=== PATIENT | female | born 1960 | race American Indian/Alaskan Native ===

== ENCOUNTER 2017-09-20 06:29 | Inpatient (IN) | payer MEDICARE ==
[2017-09-20] MEDS ORDERED: NACL ONE (09:31)
--- NOTE | 2017-09-20 09:46 | Emergency Department Report ---
HPI - General Chief Complaint: Weakness Time Seen by Provider: 09/20/17 09:16 - HPI HPI: This is a 57-year-old female who presents to the emergency department by EMS from home with complaint of left-sided weakness since last night. She says that this started around 10 PM and then she decided to just go to sleep and hope that it went away but she woke up with the symptoms as well and this prompted the patient's daughter to call for EMS. She denies any headache, vision change, slurred speech. She is unsure whether she feels some type of sensory deficit to the left side as well. She has a past medical history of [id number] diabetes, asthma, hypertension, atrial fibrillation on warfarin, sleep apnea. She's not had a primary care doctor. She is a tobacco smoker but denies any alcohol or illicit drug use or abuse. No recent travel or sick contacts at home. She did not take anything for her symptoms prior to presentation. ED Past Medical Hx - Past Medical History Hx Hypertension: Yes Hx Asthma: Yes Additional medical history: Sleep Apnea - Surgical History Additional Surgical History: Hysterectomy, - Social History Smoking Status: Current Every Day Smoker Substance Use Type: None ED Review of Systems ROS: Stated complaint: LT SIDE WEAKNESS Other details as noted in HPI Comment: All other systems reviewed and negative Constitutional: weakness. denies: chills, fever Eyes: denies: eye pain, eye discharge, vision change ENT: denies: ear pain, throat pain Respiratory: denies: cough, shortness of breath, wheezing Endocrine: no symptoms reported Gastrointestinal: denies: abdominal pain, nausea, diarrhea Genitourinary: denies: urgency, dysuria, discharge Musculoskeletal: denies: back pain, joint swelling, arthralgia Skin: denies: rash, lesions Neurological: weakness. denies: headache Physical Exam - Physical Exam Vital Signs: Vital Signs 09/20/17 09:07 Temperature 98.0 F Pulse Rate 83 Respiratory 20 Rate Blood Pressure 142/90 O2 Sat by Pulse 97 Oximetry Physical Exam: GENERAL: The patient is well-developed well-nourished. HENT: Normocephalic. Atraumatic. Patient has moist mucous membranes. EYES: Extraocular motions are intact. Pupils equal reactive to light bilaterally. No nystagmus. NECK: Supple. Trachea is midline. CHEST/LUNGS: Clear to auscultation. There is no respiratory distress noted. HEART/CARDIOVASCULAR: Regular. There is no tachycardia. There is no murmur. ABDOMEN: Abdomen is soft, nontender. Patient has normal bowel sounds. There is no abdominal distention. Morbidly obese habitus. SKIN: Skin is warm and dry. NEURO: The patient is awake, alert, and oriented. The patient is cooperative. The patient has left-sided weakness. The left arm drifts down but she can hold it above the gurney. There appears to be almost complete paralysis of the left lower extremity. There is subjective decreased sensation to the left leg compared to the right. No facial asymmetry. The patient has normal speech. MUSCULOSKELETAL: There is no tenderness or deformity. There is no evidence of acute injury. ED Course Vital Signs 09/20/17 09:07 Temperature 98.0 F Pulse Rate 83 Respiratory 20 Rate Blood Pressure 142/90 O2 Sat by Pulse 97 Oximetry - Consultations Consultation #1: I spoke to the on-call telemedicine neurologist and she agrees that the patient is not a TPA candidate as the symptoms started about 12 hours ago. She agrees with plan for admission for MRI and further stroke workup but nothing further required emergently through the ED. 09/20/17 12:15 ED Medical Decision Making - Lab Data Result diagrams: 09/20/17 09:23 09/20/17 09:23 - EKG Data -: EKG Interpreted by Me EKG shows normal: sinus rhythm (with PACs), axis, intervals, QRS complexes, ST- T waves Rate: normal - EKG Data When compared to previous EKG there are: previous EKG unavailable Interpretation: normal EKG - Radiology Data Radiology results: report reviewed CT HEAD WITHOUT CONTRAST: HISTORY: Left sided weakness. TECHNIQUE: Sequential CT images without contrast. FINDINGS: Images obtained show bilateral prominence of the sulci and ventricles. There are no abnormal intra- or extra-axial blood or fluid collections. There are no focal masses or evidence of mass effect. The qiu white matter differentiation appears within normal limits. Regions of periventricular decreased attenuation are consistent with microangiopathic ischemic disease. Chronic 1 cm infarct in the right ortiz radiata is noted. The posterior fossa structures including the fourth ventricle, cerebellum, and brainstem appear normal. IMPRESSION: Evidence of mild atrophy and microangiopathic ischemic disease. Chronic 1 cm infarct in the right ortiz radiata. No acute intracranial process noted. Transcribed By: TTR Dictated By: CONCETTA MARTINEZ JR, MD Electronically Authenticated By: CONCETTA MARTINEZ JR, MD Signed Date/Time: 09/20/17 1006 - Medical Decision Making Patient has left sided weakness, worst in the lower extremity as well as some subjective decreased sensation. It appears consistent with a CVA but so far CT of the head did not show any bleed, ischemic changes or any acute process. Labs are mostly unremarkable and do not show any etiology of her symptoms. EKG is basically normal without any ST elevation [place] or significant dysrhythmia. She was given an aspirin. She will be admitted to the hospital for further evaluation and treatment and has been accepted for admission by the hospitalist , Dr. Dempsey. - Differential Diagnosis CVA, TIA, hypoglycemia Critical Care Time: No Critical care attestation.: If time is entered above; I have spent that time in minutes in the direct care of this critically ill patient, excluding procedure time. ED Disposition Clinical Impression: Left-sided weakness CVA (cerebral vascular accident) Qualifiers: CVA mechanism: unspecified Qualified Code(s): I63.9 - Cerebral infarction, unspecified Disposition: DC-09 OP ADMIT IP TO THIS HOSP Is pt being admited?: Yes Condition: Fair Referrals: RHIANNON STARKEY MD [Primary Care Provider] - 3-5 Days Time of Disposition: 11:34
[2017-09-20 09:52] LABS: Basophils # (Auto) 0.1 K/mm3 (0.0-0.1); Basophils % (Auto) 0.6 % (0.0-1.8); Eosinophils # (Auto) 0.3 K/mm3 (0.0-0.4); Eosinophils % (Auto) 2.8 % (0.0-4.3); Hematocrit 43.4 % (30.3-42.9); Hemoglobin 13.8 gm/dl (10.1-14.3); Lymphocytes # (Auto) 2.6 K/mm3 (1.2-5.4); Lymphocytes % (Auto) 21.9 % (13.4-35.0); Mean Corpuscular HGB Conc 32 % (30-34); Mean Corpuscular Hemoglobin 27 pg (28-32); Mean Corpuscular Volume 84 fl (79-97); Monocytes # (Auto) 0.7 K/mm3 (0.0-0.8); Monocytes % (Auto) 6.1 % (0.0-7.3); Platelet Count 261 K/mm3 (140-440); Red Blood Count 5.17 M/mm3 (3.65-5.03)
[2017-09-20 10:03] LABS: INR 2.67 (0.87-1.13)
[2017-09-20 10:04] LABS: Partial Thromboplastin Time 54.9 Sec. (24.2-36.6)
[2017-09-20 10:09] LABS: BUN/Creatinine Ratio 18; Blood Urea Nitrogen 9 mg/dL (7-17); Calcium 9.3 mg/dL (8.4-10.2); Hemolysis Index 4
--- NOTE | 2017-09-20 10:11 | Cat Scan Report ---
CT HEAD WITHOUT CONTRAST: HISTORY: Left sided weakness. TECHNIQUE: Sequential CT images without contrast. FINDINGS: Images obtained show bilateral prominence of the sulci and ventricles. There are no abnormal intra- or extra-axial blood or fluid collections. There are no focal masses or evidence of mass effect. The qiu white matter differentiation appears within normal limits. Regions of periventricular decreased attenuation are consistent with microangiopathic ischemic disease. Chronic 1 cm infarct in the right ortiz radiata is noted. The posterior fossa structures including the fourth ventricle, cerebellum, and brainstem appear normal. IMPRESSION: Evidence of mild atrophy and microangiopathic ischemic disease. Chronic 1 cm infarct in the right ortiz radiata. No acute intracranial process noted.
[2017-09-20 10:12] LABS: Alanine Aminotransferase 15 units/L (7-56); Albumin 3.6 g/dL (3.9-5)
[2017-09-20 10:14] LABS: Bilirubin,Direct < 0.2 mg/dL (0-0.2)
[2017-09-20] MEDS ORDERED: BABY ASPIRIN PO ONE (10:35)
[2017-09-20] MEDS: HEPARIN SUB-Q SCH ×2 (16:33→21:04)
--- NOTE | 2017-09-20 21:08 | History and Physical Report ---
History of Present Illness Date of examination: 09/20/17 Date of admission: 09/20/17 11:35 Chief complaint: CC Unable to use L side History of present illness: HONORIO: 57-year-old female with pmh of HTN Asthma and Sleep Apnea presents to the emergency department by EMS from home with complaint of left- sided weakness since last night. She says that this started around 10 PM and then she decided to just go to sleep and hope that it went away but she woke up with the symptoms as well and this prompted the patient's daughter to call for EMS. She denies any headache, vision change, slurred speech. She is unsure whether she feels some type of sensory deficit to the left side as well. She has a past medical history of [id number] diabetes, asthma, hypertension, atrial fibrillation on warfarin, sleep apnea. She's not had a primary care doctor. She is a tobacco smoker but denies any alcohol or illicit drug use or abuse. No recent travel or sick contacts at home. She did not take anything for her symptoms prior to presentation. Past Medical History Hx Hypertension: Yes Hx Asthma: Yes Additional medical history: Sleep Apnea Surgical History Additional Surgical History: Hysterectomy, Social History Smoking Status: Current Every Day Smoker Substance Use Type: None Fam Hx Htn Review of Systems Stated complaint: LT SIDE WEAKNESS Other details as noted in HPI Comment: All other systems reviewed and negative Constitutional: weakness. denies: chills, fever Eyes: denies: eye pain, eye discharge, vision change ENT: denies: ear pain, throat pain Respiratory: denies: cough, shortness of breath, wheezing Endocrine: no symptoms reported Gastrointestinal: denies: abdominal pain, nausea, diarrhea Genitourinary: denies: urgency, dysuria, discharge Musculoskeletal: denies: back pain, joint swelling, arthralgia Skin: denies: rash, lesions Neurological: weakness. denies: headache Medications and Allergies Allergies Allergy/AdvReac Type Severity Reaction Status Date / Time No Known Allergies Allergy Unverified 09/20/17 09:07 Active Meds: Active Medications Heparin Sodium (Porcine) (Heparin) 5,000 unit SUB-Q Q8HR [facility] Last Admin: 09/20/17 21:04 Dose: 5,000 unit Influenza Virus Vaccine Quadrival (Fluarix Quad [id number](36 Mos+) 0.5 ml IM .ONCE ONE Stop: 09/21/17 12:01 Exam - Physical Exam Narrative exam: Lying comfortably - Constitutional Vitals: Temp Pulse Resp BP Pulse Ox 98.8 F 79 20 174/98 97 09/20/17 15:48 09/20/17 15:48 09/20/17 15:48 09/20/17 15:48 09/20/17 15:48 General appearance: Present: no acute distress, well-nourished - EENT Eyes: Present: PERRL ENT: hearing intact, clear oral mucosa - Neck Neck: Present: supple, normal ROM - Respiratory Respiratory effort: normal Respiratory: bilateral: CTA - Cardiovascular Heart rate: 76 Rhythm: regular Heart Sounds: Present: S1 & S2. Absent: rub, click - Extremities Extremities: no ischemia, pulses intact, pulses symmetrical, No edema Peripheral Pulses: within normal limits - Abdominal General gastrointestinal: Present: soft, non-tender, non-distended, normal bowel sounds Female genitourinary: Present: normal - Rectal Rectal Exam: deferred - Integumentary Integumentary: Present: clear, warm, dry - Musculoskeletal Musculoskeletal: strength equal bilaterally, left sided weakness (0/5 power Flaccid paralysis) - Psychiatric Psychiatric: appropriate mood/affect, intact judgment & insight - Neurologic Neurologic: CNII-XII intact, moves all extremities Results - Labs CBC & Chem 7: 09/21/17 04:48 09/21/17 04:48 Labs: Laboratory Last Values WBC 11.7 K/mm3 (4.5-11.0) H 09/20/17 09:23 RBC 5.17 M/mm3 (3.65-5.03) H 09/20/17 09:23 Hgb 13.8 gm/dl (10.1-14.3) 09/20/17 09:23 Hct 43.4 % (30.3-42.9) H 09/20/17 09:23 MCV 84 fl (79-97) 09/20/17 09:23 MCH 27 pg (28-32) L 09/20/17 09:23 MCHC 32 % (30-34) 09/20/17 09:23 RDW 15.0 % (13.2-15.2) 09/20/17 09:23 Plt Count 261 K/mm3 (140-440) 09/20/17 09:23 Lymph % (Auto) 21.9 % (13.4-35.0) 09/20/17 09:23 [place] % (Auto) 6.1 % (0.0-7.3) 09/20/17 09:23 Eos % (Auto) 2.8 % (0.0-4.3) 09/20/17 09:23 Baso % (Auto) 0.6 % (0.0-1.8) 09/20/17 09:23 Lymph # 2.6 K/mm3 (1.2-5.4) 09/20/17 09:23 [place] # 0.7 K/mm3 (0.0-0.8) 09/20/17 09:23 Eos # 0.3 K/mm3 (0.0-0.4) 09/20/17 09:23 Baso # 0.1 K/mm3 (0.0-0.1) 09/20/17 09:23 Seg Neutrophils % 68.6 % (40.0-70.0) 09/20/17 09:23 Seg Neutrophils # 8.0 K/mm3 (1.8-7.7) H 09/20/17 09:23 PT 30.1 Sec. (12.2-14.9) H 09/20/17 09:23 INR 2.67 (0.87-1.13) H 09/20/17 09:23 APTT 54.9 Sec. (24.2-36.6) H 09/20/17 09:23 Sodium 149 mmol/L (137-145) H 09/20/17 09:23 Potassium 4.0 mmol/L (3.6-5.0) 09/20/17 09:23 Chloride 103.5 mmol/L (98-107) 09/20/17 09:23 Carbon Dioxide 32 mmol/L (22-30) H 09/20/17 09:23 Anion Gap 18 mmol/L 09/20/17 09:23 BUN 9 mg/dL (7-17) 09/20/17 09:23 Creatinine 0.5 mg/dL (0.7-1.2) L 09/20/17 09:23 Estimated GFR > 60 ml/min 09/20/17 09:23 BUN/Creatinine Ratio 18 % 09/20/17 09:23 Glucose 110 mg/dL (65-100) H 09/20/17 09:23 POC Glucose 84 (70-105) 09/20/17 15:57 Calcium 9.3 mg/dL (8.4-10.2) 09/20/17 09:23 Total Bilirubin 0.60 mg/dL (0.1-1.2) 09/20/17 09:23 Direct Bilirubin < 0.2 mg/dL (0-0.2) 09/20/17 09:23 Indirect Bilirubin 0.4 mg/dL 09/20/17 09:23 AST 13 units/L (5-40) 09/20/17 09:23 ALT 15 units/L (7-56) 09/20/17 09:23 Alkaline Phosphatase 78 units/L (35-129) 09/20/17 09:23 Troponin T < 0.010 ng/mL (0.00-0.029) 09/20/17 09:23 Total Protein 6.7 g/dL (6.3-8.2) 09/20/17 09:23 Albumin 3.6 g/dL (3.9-5) L 09/20/17 09:23 Albumin/Globulin Ratio 1.2 % 09/20/17 09:23 TSH 0.479 mlU/mL (0.270-4.200) 09/20/17 09:23 - Imaging and Cardiology EKG: report reviewed CT Scan - head: report reviewed (NAF Chronic 1 cm infarct Rt Gal[place] radiata) Assessment and Plan Advance Directives: Yes (Full code) VTE prophylaxis?: Chemical Plan of care discussed with patient/family: Yes - Patient Problems (1) CVA (cerebral vascular accident) Current Visit: Yes Status: Acute Qualifiers: CVA mechanism: thrombosis Precerebral and cerebral artery: middle cerebral artery Laterality of affected vessel: right Qualified Code(s): I63.311 - Cerebral infarction due to thrombosis of right middle cerebral artery Plan to address problem: Rt Cva with l sided weakness. CVA w/u MRI/MRA/Echo/Carotid duplex scan ordered. Neuro consult requested PT/OT /speech eval ordered (2) HTN (hypertension) Current Visit: Yes Status: Chronic Qualifiers: Hypertension type: essential hypertension Qualified Code(s): I10 - Essential (primary) hypertension Plan to address problem: Cont antihypertensives (3) Sleep apnea Current Visit: Yes Status: Chronic Qualifiers: Sleep apnea type: unspecified type Qualified Code(s): G47.30 - Sleep apnea , unspecified Plan to address problem: CPAP prn (4) Asthma Current Visit: Yes Status: Inactive Qualifiers: Asthma complication type: unspecified Plan to address problem: Albuterol neb tx Prn (5) DVT prophylaxis Current Visit: Yes Status: Acute Plan to address problem: on Lovenox
[2017-09-20] MEDS ORDERED: DULCOLAX PR PRN (21:10)
[2017-09-20] MEDS ORDERED: MORPHINE IV PRN (21:11)
[2017-09-20] MEDS ORDERED: SODIUM CHLORIDE FLUSH SYRINGE 10 ML IV PRN (21:14)
[2017-09-20] MEDS ORDERED: NACL 0.45% 1000 ML 1,000 ML IV SCH (22:00)
[2017-09-20] MEDS: PEPCID PO SCH (23:49)
[2017-09-21 05:27] LABS: Basophils # (Auto) 0.1 K/mm3 (0.0-0.1); Basophils % (Auto) 0.7 % (0.0-1.8); Eosinophils # (Auto) 0.3 K/mm3 (0.0-0.4); Eosinophils % (Auto) 2.9 % (0.0-4.3); Hematocrit 42.7 % (30.3-42.9); Hemoglobin 14.1 gm/dl (10.1-14.3); Lymphocytes # (Auto) 2.5 K/mm3 (1.2-5.4); Lymphocytes % (Auto) 24.6 % (13.4-35.0); Mean Corpuscular HGB Conc 33 % (30-34); Mean Corpuscular Hemoglobin 28 pg (28-32); Mean Corpuscular Volume 84 fl (79-97); Monocytes # (Auto) 0.6 K/mm3 (0.0-0.8); Monocytes % (Auto) 5.7 % (0.0-7.3); Platelet Count 242 K/mm3 (140-440); Red Blood Count 5.06 M/mm3 (3.65-5.03); Red Cell Distribution Width 14.7 % (13.2-15.2)
[2017-09-21 06:11] LABS: Alanine Aminotransferase 14 units/L (7-56); Albumin 3.5 g/dL (3.9-5); BUN/Creatinine Ratio 16; Blood Urea Nitrogen 8 mg/dL (7-17); Calcium 9.3 mg/dL (8.4-10.2); Chol/HDL Ratio 4.45 %; HDL Cholesterol 46 mg/dL (40-59); Hemolysis Index 8; LDL Cholesterol,Direct 99 mg/dL (50-130)
[2017-09-21] MEDS: HEPARIN SUB-Q SCH ×3 (06:13→21:51)
[2017-09-21 06:55] LABS: Amorphous Crystals,Urine 1+; Bacteria,Urine 1+ /HPF (Negative); Bilirubin,Urine NEG (Negative); Blood,Urine NEG (Negative); Color,Urine Yellow (Yellow); Mucus,Urine FEW /HPF; Nitrite,Urine NEG (Negative); Urobilinogen,Urine < 2.0 mg/dL (<2.0); WBC,Urine < 1.0 /HPF (0.0-6.0)
[2017-09-21] MEDS: PEPCID PO SCH ×2 (09:48→21:52)
--- NOTE | 2017-09-21 10:46 | Magnetic Resonance Report ---
MRI OF THE BRAIN WITHOUT CONTRAST: HISTORY: Stroke PROCEDURE: Multiplanar, multisequence MR imaging of the brain without IV contrast was performed. FINDINGS: Compared to the CT head dated 09/20/17. A 5 mm focus of diffusion restriction is identified in the right lateral thalamus/posterior limb of the right internal capsule consistent with subacute ischemia. This is best demonstrated on the diffusion image 20. No additional area of diffusion restriction is identified. No evidence for hemorrhage, mass or extra-axial fluid collection. A chronic 1 cm focal infarct is identified in the posterior right ortiz radiata on flair image 17. No large chronic infarct. There are mild nonspecific chronic white matter changes. The qiu-white interface is well defined. The midline structures are central. The basal cisterns are patent. Normal ventricular size. The orbital cavities and sella turcica demonstrate no abnormality. The visualized paranasal sinuses and mastoid air cells are well aerated. IMPRESSION: 5 mm focus of subacute ischemia in the right lateral thalamus/posterior limb of the right internal capsule. Chronic focal infarct in the right ortiz radiata. Nonspecific chronic white matter changes.
--- NOTE | 2017-09-21 10:47 | Magnetic Resonance Report ---
MRA HEAD WITHOUT CONTRAST HISTORY: Stroke. [id number] imaging with MIP reformations of the lime of [place] is submitted. The arteries appear widely patent and free of hemodynamically significant stenosis, aneurysm or dissection. Moderate bilateral posterior communicating arteries are identified. IMPRESSION: Unremarkable MRA head.
[2017-09-21] MEDS ORDERED: Fluarix Quad 2017-2018(36 MOS+ IM ONE (12:00)
[2017-09-21] MEDS: TYLENOL PO PRN (12:03)
--- NOTE | 2017-09-21 15:30 | Consultation ---
History of Present Illness Consult date: 09/21/17 History of present illness: went over the MRI with family clear cut HTN related infarct deep white matter right hemisphere... BP control is not good explained that drug therapy is not effective.... conservative therapy for stroke is recommended [facility] similar stroke while at [facility] last February Medications and Allergies Allergies Allergy/AdvReac Type Severity Reaction Status Date / Time No Known Allergies Allergy Unverified 09/21/17 12:41 Home Medications Medication Instructions Recorded Confirmed Last Taken Type Amlodipine Besylate [Norvasc] 10 mg PO BID 09/21/17 09/21/17 09/19/17 History Carvedilol [Coreg] 25 mg PO BID 09/21/17 09/21/17 09/19/17 History Lisinopril [Zestril] 40 mg PO DAILY 09/21/17 09/21/17 09/19/17 History metFORMIN [Glucophage] 750 mg PO BID 09/21/17 09/21/17 09/19/17 History Active Meds: Active Medications Acetaminophen (Tylenol) 650 mg PO Q4H PRN PRN Reason: Pain MILD(1-3)/Fever >100.5/RIVERA Last Admin: 09/21/17 12:03 Dose: 650 mg Atorvastatin Calcium (Lipitor) 20 mg PO QHS [facility] Bisacodyl (Dulcolax) 10 mg OR QDAY PRN PRN Reason: Constipation unrelieved by MOM Clopidogrel Bisulfate (Plavix) 75 mg PO QDAY [facility] Famotidine (Pepcid) 20 mg PO BID [facility] Last Admin: 09/21/17 09:48 Dose: 20 mg Heparin Sodium (Porcine) (Heparin) 5,000 unit SUB-Q Q8HR [facility] Last Admin: 09/21/17 06:13 Dose: 5,000 unit Hydralazine HCl (Apresoline) 10 mg IV Q6H PRN PRN Reason: Keep SBP between 160-185 mm Hg Magnesium Hydroxide (Milk Of Magnesia) 30 ml PO Q4H PRN PRN Reason: Constipation Morphine Sulfate (Morphine) 2 mg IV Q4H PRN PRN Reason: Pain, Moderate (4-6) Morphine Sulfate (Morphine) 4 mg IV Q4H PRN PRN Reason: Pain , Severe (7-10) Ondansetron HCl (Zofran) 4 mg IV Q8H PRN PRN Reason: N/V unrelieved by Reglan Oxycodone/Acetaminophen (Percocet 5/325) 1 tab PO Q6H PRN PRN Reason: Pain, Moderate (4-6) Sodium Chloride (Sodium Chloride Flush Syringe 10 Ml) 10 ml IV PRN PRN PRN Reason: LINE FLUSH Physical Examination - Vital Signs Vital Signs: Vital Signs Resp 20 09/20/17 09:00 Results - Laboratory Findings CBC and BMP: 09/21/17 04:48 09/21/17 04:48 Abnormal Lab Findings: Abnormal Labs 09/20/17 09/20/17 09/20/17 06:15 09:23 09:23 WBC 11.7 H RBC 5.17 H Hct 43.4 H MCH 27 L Seg Neutrophils # 8.0 H PT INR APTT Sodium 149 H Carbon Dioxide 32 H Creatinine 0.5 L Glucose 110 H Hemoglobin A1c Albumin Triglycerides Cholesterol Urine pH 8.0 H 09/20/17 09/20/17 09/20/17 09:23 09:23 09:23 WBC RBC Hct MCH Seg Neutrophils # PT 30.1 H INR 2.67 H APTT 54.9 H Sodium Carbon Dioxide Creatinine Glucose Hemoglobin A1c 6.4 H Albumin 3.6 L Triglycerides Cholesterol Urine pH 09/21/17 09/21/17 04:48 04:48 WBC RBC 5.06 H Hct MCH Seg Neutrophils # PT INR APTT Sodium Carbon Dioxide Creatinine 0.5 L Glucose 109 H Hemoglobin A1c Albumin 3.5 L Triglycerides 301 H Cholesterol 205 H Urine pH
[2017-09-21] MEDS: APRESOLINE IV PRN (17:27)
[2017-09-21] MEDS: PLAVIX PO SCH (17:27)
[2017-09-21] MEDS: PERCOCET 5/325 PO PRN (18:34)
[2017-09-21] MEDS: ZOFRAN IV PRN (21:51)
[2017-09-22] MEDS: MILK OF MAGNESIA PO PRN ×2 (05:57→22:07)
[2017-09-22] MEDS: HEPARIN SUB-Q SCH ×3 (05:58→22:07)
[2017-09-22] MEDS: PLAVIX PO SCH (10:24)
[2017-09-22] MEDS: PEPCID PO SCH ×2 (10:24→22:07)
--- NOTE | 2017-09-22 12:23 | Progress Note ---
Assessment and Plan Assessment and plan: Patient is a 57-year-old right-handed woman woman with history of CVA with left sided weakness, hypertension, type 2 diabetes mellitus, asthma, atrial fib on Warfarin, tobacco dependency and obstructive sleep apnea who presents with worsening left sided weakness MRI brain without contrast reported as 5 mm focus of subacute ischemia in the right lateral thalamus/posterior limb of the right internal capsule, chronic focal area for the right coronal radiata, nonspecific chronic white matter changes -Acute ischemic infarct, patient admits to not being completely compliant with aspirin: mri, change asa to plavix, consult neurology -Accelerated Hypertension: prn iv hydralazine -Dyslipidemia: start statin -Uncontrolled dm: add ssi -GI/DVT prophylaxis reviewed History Interval history: Patient was seen and examined. Follow-up on current diagnosis. Overnight uneventful. Patient denies any chest pain, shortness breath, nausea/vomiting or severe headaches. Imaging, nursing note, chart, labs and old chart reviewed. Discussed with patient. Hospitalist Physical - Physical exam Narrative exam: GEN: WDWN, NAD, AWAKE, ALERT, ORIENTATED 3 HEENT: NCAT, EOMI, PERRL, OP Clear NECK: supple, no adenopathy, no thyromegaly, no JVD CVS/HEART: RRR, NORMAL S1S2, NO JVD, pulses present bilaterally CHEST/LUNGS: CTA B, Symmetrical chest expansion, good air entry bilaterally GI/Abdomen: soft, NTND, good bowel sounds, no guarding or rebound /Bladder: no suprapubic tenderness, no CVA or paraspinal tenderness EXT/Skin: no c/c/e, no obvious rash MSK: Left hemiparesis Neuro: CN 2-12 grossly intact, left pronator drift, left sided sensory deficits and expressive aphasia Psych: calm - Constitutional Vitals: Temp Pulse Resp BP Pulse Ox 98.5 F 77 20 172/92 95 09/22/17 08:50 09/22/17 08:50 09/22/17 08:50 09/22/17 08:50 09/22/17 08:50 General appearance: Present: no acute distress, well-nourished Results - Labs CBC & Chem 7: 09/21/17 04:48 09/21/17 04:48 Labs: Laboratory Last Values WBC 10.2 K/mm3 (4.5-11.0) 09/21/17 04:48 RBC 5.06 M/mm3 (3.65-5.03) H 09/21/17 04:48 Hgb 14.1 gm/dl (10.1-14.3) 09/21/17 04:48 Hct 42.7 % (30.3-42.9) 09/21/17 04:48 MCV 84 fl (79-97) 09/21/17 04:48 MCH 28 pg (28-32) 09/21/17 04:48 MCHC 33 % (30-34) 09/21/17 04:48 RDW 14.7 % (13.2-15.2) 09/21/17 04:48 Plt Count 242 K/mm3 (140-440) 09/21/17 04:48 Lymph % (Auto) 24.6 % (13.4-35.0) 09/21/17 04:48 [place] % (Auto) 5.7 % (0.0-7.3) 09/21/17 04:48 Eos % (Auto) 2.9 % (0.0-4.3) 09/21/17 04:48 Baso % (Auto) 0.7 % (0.0-1.8) 09/21/17 04:48 Lymph # 2.5 K/mm3 (1.2-5.4) 09/21/17 04:48 [place] # 0.6 K/mm3 (0.0-0.8) 09/21/17 04:48 Eos # 0.3 K/mm3 (0.0-0.4) 09/21/17 04:48 Baso # 0.1 K/mm3 (0.0-0.1) 09/21/17 04:48 Seg Neutrophils % 66.1 % (40.0-70.0) 09/21/17 04:48 Seg Neutrophils # 6.7 K/mm3 (1.8-7.7) 09/21/17 04:48 PT 30.1 Sec. (12.2-14.9) H 09/20/17 09:23 INR 2.67 (0.87-1.13) H 09/20/17 09:23 APTT 54.9 Sec. (24.2-36.6) H 09/20/17 09:23 Sodium 144 mmol/L (137-145) 09/21/17 04:48 Potassium 3.7 mmol/L (3.6-5.0) 09/21/17 04:48 Chloride 101.3 mmol/L (98-107) 09/21/17 04:48 Carbon Dioxide 30 mmol/L (22-30) 09/21/17 04:48 Anion Gap 16 mmol/L 09/21/17 04:48 BUN 8 mg/dL (7-17) 09/21/17 04:48 Creatinine 0.5 mg/dL (0.7-1.2) L 09/21/17 04:48 Estimated GFR > 60 ml/min 09/21/17 04:48 BUN/Creatinine Ratio 16 % 09/21/17 04:48 Glucose 109 mg/dL (65-100) H 09/21/17 04:48 POC Glucose 84 (70-105) 09/20/17 15:57 Hemoglobin A1c 6.4 % (4-6) H 09/20/17 09:23 Calcium 9.3 mg/dL (8.4-10.2) 09/21/17 04:48 Total Bilirubin 1.10 mg/dL (0.1-1.2) 09/21/17 04:48 Direct Bilirubin < 0.2 mg/dL (0-0.2) 09/20/17 09:23 Indirect Bilirubin 0.4 mg/dL 09/20/17 09:23 AST 14 units/L (5-40) 09/21/17 04:48 ALT 14 units/L (7-56) 09/21/17 04:48 Alkaline Phosphatase 77 units/L (35-129) 09/21/17 04:48 Troponin T < 0.010 ng/mL (0.00-0.029) 09/20/17 09:23 Total Protein 6.5 g/dL (6.3-8.2) 09/21/17 04:48 Albumin 3.5 g/dL (3.9-5) L 09/21/17 04:48 Albumin/Globulin Ratio 1.2 % 09/21/17 04:48 Triglycerides 301 mg/dL (2-149) H 09/21/17 04:48 Cholesterol 205 mg/dL (50-199) H 09/21/17 04:48 LDL Cholesterol Direct 99 mg/dL (50-130) 09/21/17 04:48 HDL Cholesterol 46 mg/dL (40-59) 09/21/17 04:48 Cholesterol/HDL Ratio 4.45 % 09/21/17 04:48 TSH 0.479 mlU/mL (0.270-4.200) 09/20/17 09:23 Urine Color Yellow (Yellow) 09/20/17 06:15 Urine Turbidity Cloudy (Clear) 09/20/17 06:15 Urine pH 8.0 (5.0-7.0) H 09/20/17 06:15 Ur Specific [place] 1.013 (1.003-1.030) 09/20/17 06:15 Urine Protein 100 mg/dl mg/dL (Negative) 09/20/17 06:15 Urine Glucose (UA) 50 mg/dL (Negative) 09/20/17 06:15 Urine Ketones Neg mg/dL (Negative) 09/20/17 06:15 Urine Blood Neg (Negative) 09/20/17 06:15 Urine Nitrite Neg (Negative) 09/20/17 06:15 Urine Bilirubin Neg (Negative) 09/20/17 06:15 Urine Urobilinogen < 2.0 mg/dL (<2.0) 09/20/17 06:15 Ur Leukocyte Esterase Neg (Negative) 09/20/17 06:15 Urine WBC (Auto) < 1.0 /HPF (0.0-6.0) 09/20/17 06:15 Urine RBC (Auto) 2.0 /HPF (0.0-6.0) 09/20/17 06:15 U Epithel Cells (Auto) 6.0 /HPF (0-13.0) 09/20/17 06:15 Urine Bacteria (Auto) 1+ /HPF (Negative) 09/20/17 06:15 Amorphous Crystals 1+ 09/20/17 06:15 Urine Mucus Few /HPF 09/20/17 06:15
--- NOTE | 2017-09-22 15:02 | Vascular Lab Report ---
CAROTID DUPLEX STUDY: RIGHT PSVEDV CCA PROX:6320 CCA DIST:5621 ICA PROX:7324 ICA MID:6629 ICA DIST:98082 ECA: 62 VERT: 41 17 LEFT PSVEDV CCA PROX:5415 CCA DIST:5317 ICA PROX:4816 ICA MID:6427 ICA DIST:6726 ECA: 58 VERT: 29 4 REASON FOR EXAM: Stroke. COMMENTS ON THE RIGHT: Doppler frequency analysis is consistent with 16 to 49 percent diameter reduction of the internal carotid artery. Minimal amount of plaque is seen. The common carotid artery is patent. The external carotid artery is patent. The vertebral artery has antegrade flow. COMMENTS ON THE LEFT: Doppler frequency analysis is consistent with 16 to 49 percent diameter reduction of the internal carotid artery. Minimal amount of plaque is seen. The common carotid artery is patent. The external carotid artery is patent. The vertebral artery has antegrade flow. IMPRESSION: Less than 50% diameter reduction in the internal carotid arteries bilaterally.
[2017-09-22] MEDS: PERCOCET 5/325 PO PRN (15:43)
[2017-09-22] MEDS: ZOFRAN IV PRN (16:59)
[2017-09-23] MEDS: HEPARIN SUB-Q SCH ×3 (06:05→22:55)
[2017-09-23] MEDS: TYLENOL PO PRN (07:30)
[2017-09-23] MEDS: PLAVIX PO SCH (11:17)
[2017-09-23] MEDS: PEPCID PO SCH ×2 (11:17→22:55)
[2017-09-23] MEDS: PERCOCET 5/325 PO PRN (16:10)
--- NOTE | 2017-09-23 17:34 | Progress Note ---
Assessment and Plan Assessment and plan: Patient is a 57-year-old right-handed woman woman with history of CVA with left sided weakness, hypertension, type 2 diabetes mellitus, asthma, atrial fib on Warfarin, tobacco dependency and obstructive sleep apnea who presents with worsening left sided weakness MRI brain without contrast reported as 5 mm focus of subacute ischemia in the right lateral thalamus/posterior limb of the right internal capsule, chronic focal area for the right coronal radiata, nonspecific chronic white matter changes -Acute ischemic infarct, patient admits to not being completely compliant with aspirin: mri, change asa to plavix, consult neurology -Accelerated Hypertension: prn iv hydralazine -Dyslipidemia: start statin -Uncontrolled dm: add ssi -GI/DVT prophylaxis reviewed awaiting on placement History Interval history: Patient was seen and examined. Follow-up on current diagnosis. Overnight uneventful. Patient denies any chest pain, shortness breath, nausea/vomiting or severe headaches. Imaging, nursing note, chart, labs and old chart reviewed. Discussed with patient. Hospitalist Physical - Physical exam Narrative exam: GEN: WDWN, NAD, AWAKE, ALERT, ORIENTATED 3 HEENT: NCAT, EOMI, PERRL, OP Clear NECK: supple, no adenopathy, no thyromegaly, no JVD CVS/HEART: RRR, NORMAL S1S2, NO JVD, pulses present bilaterally CHEST/LUNGS: CTA B, Symmetrical chest expansion, good air entry bilaterally GI/Abdomen: soft, NTND, good bowel sounds, no guarding or rebound /Bladder: no suprapubic tenderness, no CVA or paraspinal tenderness EXT/Skin: no c/c/e, no obvious rash MSK: Left hemiparesis Neuro: CN 2-12 grossly intact, left pronator drift, left sided sensory deficits and expressive aphasia Psych: calm - Constitutional Vitals: Temp Pulse Resp BP Pulse Ox 98.7 F 73 20 170/91 99 09/23/17 11:54 09/23/17 11:54 09/23/17 11:54 09/23/17 11:54 09/23/17 11:54 General appearance: Present: no acute distress, well-nourished Results - Labs CBC & Chem 7: 09/21/17 04:48 09/21/17 04:48 Labs: Laboratory Last Values WBC 10.2 K/mm3 (4.5-11.0) 09/21/17 04:48 RBC 5.06 M/mm3 (3.65-5.03) H 09/21/17 04:48 Hgb 14.1 gm/dl (10.1-14.3) 09/21/17 04:48 Hct 42.7 % (30.3-42.9) 09/21/17 04:48 MCV 84 fl (79-97) 09/21/17 04:48 MCH 28 pg (28-32) 09/21/17 04:48 MCHC 33 % (30-34) 09/21/17 04:48 RDW 14.7 % (13.2-15.2) 09/21/17 04:48 Plt Count 242 K/mm3 (140-440) 09/21/17 04:48 Lymph % (Auto) 24.6 % (13.4-35.0) 09/21/17 04:48 [place] % (Auto) 5.7 % (0.0-7.3) 09/21/17 04:48 Eos % (Auto) 2.9 % (0.0-4.3) 09/21/17 04:48 Baso % (Auto) 0.7 % (0.0-1.8) 09/21/17 04:48 Lymph # 2.5 K/mm3 (1.2-5.4) 09/21/17 04:48 [place] # 0.6 K/mm3 (0.0-0.8) 09/21/17 04:48 Eos # 0.3 K/mm3 (0.0-0.4) 09/21/17 04:48 Baso # 0.1 K/mm3 (0.0-0.1) 09/21/17 04:48 Seg Neutrophils % 66.1 % (40.0-70.0) 09/21/17 04:48 Seg Neutrophils # 6.7 K/mm3 (1.8-7.7) 09/21/17 04:48 PT 30.1 Sec. (12.2-14.9) H 09/20/17 09:23 INR 2.67 (0.87-1.13) H 09/20/17 09:23 APTT 54.9 Sec. (24.2-36.6) H 09/20/17 09:23 Sodium 144 mmol/L (137-145) 09/21/17 04:48 Potassium 3.7 mmol/L (3.6-5.0) 09/21/17 04:48 Chloride 101.3 mmol/L (98-107) 09/21/17 04:48 Carbon Dioxide 30 mmol/L (22-30) 09/21/17 04:48 Anion Gap 16 mmol/L 09/21/17 04:48 BUN 8 mg/dL (7-17) 09/21/17 04:48 Creatinine 0.5 mg/dL (0.7-1.2) L 09/21/17 04:48 Estimated GFR > 60 ml/min 09/21/17 04:48 BUN/Creatinine Ratio 16 % 09/21/17 04:48 Glucose 109 mg/dL (65-100) H 09/21/17 04:48 POC Glucose 84 (70-105) 09/20/17 15:57 Hemoglobin A1c 6.4 % (4-6) H 09/20/17 09:23 Calcium 9.3 mg/dL (8.4-10.2) 09/21/17 04:48 Total Bilirubin 1.10 mg/dL (0.1-1.2) 09/21/17 04:48 Direct Bilirubin < 0.2 mg/dL (0-0.2) 09/20/17 09:23 Indirect Bilirubin 0.4 mg/dL 09/20/17 09:23 AST 14 units/L (5-40) 09/21/17 04:48 ALT 14 units/L (7-56) 09/21/17 04:48 Alkaline Phosphatase 77 units/L (35-129) 09/21/17 04:48 Troponin T < 0.010 ng/mL (0.00-0.029) 09/20/17 09:23 Total Protein 6.5 g/dL (6.3-8.2) 09/21/17 04:48 Albumin 3.5 g/dL (3.9-5) L 09/21/17 04:48 Albumin/Globulin Ratio 1.2 % 09/21/17 04:48 Triglycerides 301 mg/dL (2-149) H 09/21/17 04:48 Cholesterol 205 mg/dL (50-199) H 09/21/17 04:48 LDL Cholesterol Direct 99 mg/dL (50-130) 09/21/17 04:48 HDL Cholesterol 46 mg/dL (40-59) 09/21/17 04:48 Cholesterol/HDL Ratio 4.45 % 09/21/17 04:48 TSH 0.479 mlU/mL (0.270-4.200) 09/20/17 09:23 Urine Color Yellow (Yellow) 09/20/17 06:15 Urine Turbidity Cloudy (Clear) 09/20/17 06:15 Urine pH 8.0 (5.0-7.0) H 09/20/17 06:15 Ur Specific [place] 1.013 (1.003-1.030) 09/20/17 06:15 Urine Protein 100 mg/dl mg/dL (Negative) 09/20/17 06:15 Urine Glucose (UA) 50 mg/dL (Negative) 09/20/17 06:15 Urine Ketones Neg mg/dL (Negative) 09/20/17 06:15 Urine Blood Neg (Negative) 09/20/17 06:15 Urine Nitrite Neg (Negative) 09/20/17 06:15 Urine Bilirubin Neg (Negative) 09/20/17 06:15 Urine Urobilinogen < 2.0 mg/dL (<2.0) 09/20/17 06:15 Ur Leukocyte Esterase Neg (Negative) 09/20/17 06:15 Urine WBC (Auto) < 1.0 /HPF (0.0-6.0) 09/20/17 06:15 Urine RBC (Auto) 2.0 /HPF (0.0-6.0) 09/20/17 06:15 U Epithel Cells (Auto) 6.0 /HPF (0-13.0) 09/20/17 06:15 Urine Bacteria (Auto) 1+ /HPF (Negative) 09/20/17 06:15 Amorphous Crystals 1+ 09/20/17 06:15 Urine Mucus Few /HPF 09/20/17 06:15
[2017-09-24] MEDS: HEPARIN SUB-Q SCH ×3 (06:30→22:37)
[2017-09-24] MEDS: PERCOCET 5/325 PO PRN ×2 (06:45→21:02)
[2017-09-24] MEDS: PLAVIX PO SCH (09:03)
[2017-09-24] MEDS: PEPCID PO SCH ×2 (09:03→22:36)
--- NOTE | 2017-09-24 14:22 | Progress Note ---
Assessment and Plan Assessment and plan: Patient is a 57-year-old right-handed woman woman with history of CVA with left sided weakness, hypertension, type 2 diabetes mellitus, asthma, atrial fib on Warfarin, tobacco dependency and obstructive sleep apnea who presents with worsening left sided weakness MRI brain without contrast reported as 5 mm focus of subacute ischemia in the right lateral thalamus/posterior limb of the right internal capsule, chronic focal area for the right coronal radiata, nonspecific chronic white matter changes -Acute ischemic infarct, patient admits to not being completely compliant with aspirin (she takes every other day): mri, change asa to plavix, consult neurology -Accelerated Hypertension: prn iv hydralazine -Dyslipidemia: start statin -Uncontrolled dm: add ssi -GI/DVT prophylaxis reviewed: Subcutaneous heparin -Chronic atrial fibrillation: will restart warfarin awaiting on placement History Interval history: Patient was seen and examined. Follow-up on current diagnosis. Overnight uneventful. Patient denies any chest pain, shortness breath, or severe headaches. Imaging, nursing note, chart, labs and old chart reviewed. Discussed with patient. She complains of nausea but no vomiting or abdominal pain. Hospitalist Physical - Physical exam Narrative exam: GEN: WDWN, NAD, AWAKE, ALERT, ORIENTATED 3 HEENT: NCAT, EOMI, PERRL, OP Clear NECK: supple, no adenopathy, no thyromegaly, no JVD CVS/HEART: Irregular irregular NORMAL S1S2, NO JVD, pulses present bilaterally CHEST/LUNGS: CTA B, Symmetrical chest expansion, good air entry bilaterally GI/Abdomen: soft, NTND, good bowel sounds, no guarding or rebound /Bladder: no suprapubic tenderness, no CVA or paraspinal tenderness EXT/Skin: no c/c/e, no obvious rash MSK: Left hemiparesis Neuro: CN 2-12 grossly intact, left pronator drift, left sided sensory deficits and expressive aphasia Psych: calm - Constitutional Vitals: Temp Pulse Resp BP Pulse Ox 99.0 F 73 20 157/77 97 09/24/17 09:53 09/24/17 09:53 09/24/17 09:53 09/24/17 09:53 09/24/17 09:53 General appearance: Present: no acute distress, well-nourished Results - Labs CBC & Chem 7: 09/21/17 04:48 09/21/17 04:48 Labs: Laboratory Last Values WBC 10.2 K/mm3 (4.5-11.0) 09/21/17 04:48 RBC 5.06 M/mm3 (3.65-5.03) H 09/21/17 04:48 Hgb 14.1 gm/dl (10.1-14.3) 09/21/17 04:48 Hct 42.7 % (30.3-42.9) 09/21/17 04:48 MCV 84 fl (79-97) 09/21/17 04:48 MCH 28 pg (28-32) 09/21/17 04:48 MCHC 33 % (30-34) 09/21/17 04:48 RDW 14.7 % (13.2-15.2) 09/21/17 04:48 Plt Count 242 K/mm3 (140-440) 09/21/17 04:48 Lymph % (Auto) 24.6 % (13.4-35.0) 09/21/17 04:48 [place] % (Auto) 5.7 % (0.0-7.3) 09/21/17 04:48 Eos % (Auto) 2.9 % (0.0-4.3) 09/21/17 04:48 Baso % (Auto) 0.7 % (0.0-1.8) 09/21/17 04:48 Lymph # 2.5 K/mm3 (1.2-5.4) 09/21/17 04:48 [place] # 0.6 K/mm3 (0.0-0.8) 09/21/17 04:48 Eos # 0.3 K/mm3 (0.0-0.4) 09/21/17 04:48 Baso # 0.1 K/mm3 (0.0-0.1) 09/21/17 04:48 Seg Neutrophils % 66.1 % (40.0-70.0) 09/21/17 04:48 Seg Neutrophils # 6.7 K/mm3 (1.8-7.7) 09/21/17 04:48 PT 30.1 Sec. (12.2-14.9) H 09/20/17 09:23 INR 2.67 (0.87-1.13) H 09/20/17 09:23 APTT 54.9 Sec. (24.2-36.6) H 09/20/17 09:23 Sodium 144 mmol/L (137-145) 09/21/17 04:48 Potassium 3.7 mmol/L (3.6-5.0) 09/21/17 04:48 Chloride 101.3 mmol/L (98-107) 09/21/17 04:48 Carbon Dioxide 30 mmol/L (22-30) 09/21/17 04:48 Anion Gap 16 mmol/L 09/21/17 04:48 BUN 8 mg/dL (7-17) 09/21/17 04:48 Creatinine 0.5 mg/dL (0.7-1.2) L 09/21/17 04:48 Estimated GFR > 60 ml/min 09/21/17 04:48 BUN/Creatinine Ratio 16 % 09/21/17 04:48 Glucose 109 mg/dL (65-100) H 09/21/17 04:48 POC Glucose 113 (70-105) H 09/23/17 21:26 Hemoglobin A1c 6.4 % (4-6) H 09/20/17 09:23 Calcium 9.3 mg/dL (8.4-10.2) 09/21/17 04:48 Total Bilirubin 1.10 mg/dL (0.1-1.2) 09/21/17 04:48 Direct Bilirubin < 0.2 mg/dL (0-0.2) 09/20/17 09:23 Indirect Bilirubin 0.4 mg/dL 09/20/17 09:23 AST 14 units/L (5-40) 09/21/17 04:48 ALT 14 units/L (7-56) 09/21/17 04:48 Alkaline Phosphatase 77 units/L (35-129) 09/21/17 04:48 Troponin T < 0.010 ng/mL (0.00-0.029) 09/20/17 09:23 Total Protein 6.5 g/dL (6.3-8.2) 09/21/17 04:48 Albumin 3.5 g/dL (3.9-5) L 09/21/17 04:48 Albumin/Globulin Ratio 1.2 % 09/21/17 04:48 Triglycerides 301 mg/dL (2-149) H 09/21/17 04:48 Cholesterol 205 mg/dL (50-199) H 09/21/17 04:48 LDL Cholesterol Direct 99 mg/dL (50-130) 09/21/17 04:48 HDL Cholesterol 46 mg/dL (40-59) 09/21/17 04:48 Cholesterol/HDL Ratio 4.45 % 09/21/17 04:48 TSH 0.479 mlU/mL (0.270-4.200) 09/20/17 09:23 Urine Color Yellow (Yellow) 09/20/17 06:15 Urine Turbidity Cloudy (Clear) 09/20/17 06:15 Urine pH 8.0 (5.0-7.0) H 09/20/17 06:15 Ur Specific [place] 1.013 (1.003-1.030) 09/20/17 06:15 Urine Protein 100 mg/dl mg/dL (Negative) 09/20/17 06:15 Urine Glucose (UA) 50 mg/dL (Negative) 09/20/17 06:15 Urine Ketones Neg mg/dL (Negative) 09/20/17 06:15 Urine Blood Neg (Negative) 09/20/17 06:15 Urine Nitrite Neg (Negative) 09/20/17 06:15 Urine Bilirubin Neg (Negative) 09/20/17 06:15 Urine Urobilinogen < 2.0 mg/dL (<2.0) 09/20/17 06:15 Ur Leukocyte Esterase Neg (Negative) 09/20/17 06:15 Urine WBC (Auto) < 1.0 /HPF (0.0-6.0) 09/20/17 06:15 Urine RBC (Auto) 2.0 /HPF (0.0-6.0) 09/20/17 06:15 U Epithel Cells (Auto) 6.0 /HPF (0-13.0) 09/20/17 06:15 Urine Bacteria (Auto) 1+ /HPF (Negative) 09/20/17 06:15 Amorphous Crystals 1+ 09/20/17 06:15 Urine Mucus Few /HPF 09/20/17 06:15
[2017-09-24 18:04] LABS: INR 0.91 (0.87-1.13)
[2017-09-24] MEDS: COUMADIN PO SCH (21:00)
[2017-09-24] MEDS: APRESOLINE IV PRN (22:36)
[2017-09-25] MEDS: HEPARIN SUB-Q SCH ×3 (05:32→21:29)
[2017-09-25] MEDS: ZOFRAN IV PRN (05:32)
[2017-09-25 06:38] LABS: Hematocrit 45.4 % (30.3-42.9); Hemoglobin 14.8 gm/dl (10.1-14.3); Mean Corpuscular HGB Conc 33 % (30-34); Mean Corpuscular Hemoglobin 28 pg (28-32); Mean Corpuscular Volume 84 fl (79-97); Platelet Count 248 K/mm3 (140-440); Red Blood Count 5.37 M/mm3 (3.65-5.03); Red Cell Distribution Width 14.5 % (13.2-15.2)
[2017-09-25 06:54] LABS: BUN/Creatinine Ratio 17; Blood Urea Nitrogen 10 mg/dL (7-17); Calcium 9.8 mg/dL (8.4-10.2); Hemolysis Index 23
[2017-09-25 06:55] LABS: INR 0.89 (0.87-1.13)
[2017-09-25] MEDS: PLAVIX PO SCH (10:13)
[2017-09-25] MEDS: PEPCID PO SCH ×2 (10:15→21:28)
[2017-09-25] MEDS: REGLAN IV PRN ×2 (10:15→17:23)
--- NOTE | 2017-09-25 13:25 | Progress Note ---
Assessment and Plan Assessment and plan: Patient is a 57-year-old right-handed woman woman with history of CVA with left sided weakness, hypertension, type 2 diabetes mellitus, asthma, atrial fib on Warfarin, tobacco dependency and obstructive sleep apnea who presents with worsening left sided weakness MRI brain without contrast reported as 5 mm focus of subacute ischemia in the right lateral thalamus/posterior limb of the right internal capsule, chronic focal area for the right coronal radiata, nonspecific chronic white matter changes -Acute ischemic infarct, patient admits to not being completely compliant with aspirin (she takes every other day): mri, change asa to plavix, consult neurology -Accelerated Hypertension: prn iv hydralazine -Dyslipidemia: start statin -Uncontrolled dm: add ssi -GI/DVT prophylaxis reviewed: Subcutaneous heparin -Chronic atrial fibrillation: will restart warfarin awaiting on placement History Interval history: Patient was seen and examined. Follow-up on current diagnosis. Overnight uneventful. Patient denies any chest pain, shortness breath, or severe headaches. Imaging, nursing note, chart, labs and old chart reviewed. Discussed with patient. She complains of nausea but no vomiting or abdominal pain. Hospitalist Physical - Physical exam Narrative exam: GEN: WDWN, NAD, AWAKE, ALERT, ORIENTATED 3 HEENT: NCAT, EOMI, PERRL, OP Clear NECK: supple, no adenopathy, no thyromegaly, no JVD CVS/HEART: Irregular irregular NORMAL S1S2, NO JVD, pulses present bilaterally CHEST/LUNGS: CTA B, Symmetrical chest expansion, good air entry bilaterally GI/Abdomen: soft, NTND, good bowel sounds, no guarding or rebound /Bladder: no suprapubic tenderness, no CVA or paraspinal tenderness EXT/Skin: no c/c/e, no obvious rash MSK: Left hemiparesis Neuro: CN 2-12 grossly intact, left pronator drift, left sided sensory deficits and expressive aphasia Psych: calm - Constitutional Vitals: Temp Pulse Resp BP Pulse Ox 98.2 F 90 20 171/100 96 09/25/17 12:47 09/25/17 12:47 09/25/17 12:47 09/25/17 12:47 09/25/17 12:47 General appearance: Present: no acute distress, well-nourished Results - Labs CBC & Chem 7: 09/25/17 05:48 09/25/17 05:48 Labs: Laboratory Last Values WBC 9.0 K/mm3 (4.5-11.0) 09/25/17 05:48 RBC 5.37 M/mm3 (3.65-5.03) H 09/25/17 05:48 Hgb 14.8 gm/dl (10.1-14.3) H 09/25/17 05:48 Hct 45.4 % (30.3-42.9) H 09/25/17 05:48 MCV 84 fl (79-97) 09/25/17 05:48 MCH 28 pg (28-32) 09/25/17 05:48 MCHC 33 % (30-34) 09/25/17 05:48 RDW 14.5 % (13.2-15.2) 09/25/17 05:48 Plt Count 248 K/mm3 (140-440) 09/25/17 05:48 Lymph % (Auto) 24.6 % (13.4-35.0) 09/21/17 04:48 [place] % (Auto) 5.7 % (0.0-7.3) 09/21/17 04:48 Eos % (Auto) 2.9 % (0.0-4.3) 09/21/17 04:48 Baso % (Auto) 0.7 % (0.0-1.8) 09/21/17 04:48 Lymph # 2.5 K/mm3 (1.2-5.4) 09/21/17 04:48 [place] # 0.6 K/mm3 (0.0-0.8) 09/21/17 04:48 Eos # 0.3 K/mm3 (0.0-0.4) 09/21/17 04:48 Baso # 0.1 K/mm3 (0.0-0.1) 09/21/17 04:48 Seg Neutrophils % 66.1 % (40.0-70.0) 09/21/17 04:48 Seg Neutrophils # 6.7 K/mm3 (1.8-7.7) 09/21/17 04:48 PT 12.5 Sec. (12.2-14.9) 09/25/17 05:48 INR 0.89 (0.87-1.13) 09/25/17 05:48 APTT 54.9 Sec. (24.2-36.6) H 09/20/17 09:23 Sodium 143 mmol/L (137-145) 09/25/17 05:48 Potassium 4.3 mmol/L (3.6-5.0) 09/25/17 05:48 Chloride 100.6 mmol/L (98-107) 09/25/17 05:48 Carbon Dioxide 27 mmol/L (22-30) 09/25/17 05:48 Anion Gap 20 mmol/L 09/25/17 05:48 BUN 10 mg/dL (7-17) 09/25/17 05:48 Creatinine 0.6 mg/dL (0.7-1.2) L 09/25/17 05:48 Estimated GFR > 60 ml/min 09/25/17 05:48 BUN/Creatinine Ratio 17 % 09/25/17 05:48 Glucose 126 mg/dL (65-100) H 09/25/17 05:48 POC Glucose 164 (70-105) H 09/24/17 22:04 Hemoglobin A1c 6.4 % (4-6) H 09/20/17 09:23 Calcium 9.8 mg/dL (8.4-10.2) 09/25/17 05:48 Total Bilirubin 1.10 mg/dL (0.1-1.2) 09/21/17 04:48 Direct Bilirubin < 0.2 mg/dL (0-0.2) 09/20/17 09:23 Indirect Bilirubin 0.4 mg/dL 09/20/17 09:23 AST 14 units/L (5-40) 09/21/17 04:48 ALT 14 units/L (7-56) 09/21/17 04:48 Alkaline Phosphatase 77 units/L (35-129) 09/21/17 04:48 Troponin T < 0.010 ng/mL (0.00-0.029) 09/20/17 09:23 Total Protein 6.5 g/dL (6.3-8.2) 09/21/17 04:48 Albumin 3.5 g/dL (3.9-5) L 09/21/17 04:48 Albumin/Globulin Ratio 1.2 % 09/21/17 04:48 Triglycerides 301 mg/dL (2-149) H 09/21/17 04:48 Cholesterol 205 mg/dL (50-199) H 09/21/17 04:48 LDL Cholesterol Direct 99 mg/dL (50-130) 09/21/17 04:48 HDL Cholesterol 46 mg/dL (40-59) 09/21/17 04:48 Cholesterol/HDL Ratio 4.45 % 09/21/17 04:48 TSH 0.479 mlU/mL (0.270-4.200) 09/20/17 09:23 Urine Color Yellow (Yellow) 09/20/17 06:15 Urine Turbidity Cloudy (Clear) 09/20/17 06:15 Urine pH 8.0 (5.0-7.0) H 09/20/17 06:15 Ur Specific [place] 1.013 (1.003-1.030) 09/20/17 06:15 Urine Protein 100 mg/dl mg/dL (Negative) 09/20/17 06:15 Urine Glucose (UA) 50 mg/dL (Negative) 09/20/17 06:15 Urine Ketones Neg mg/dL (Negative) 09/20/17 06:15 Urine Blood Neg (Negative) 09/20/17 06:15 Urine Nitrite Neg (Negative) 09/20/17 06:15 Urine Bilirubin Neg (Negative) 09/20/17 06:15 Urine Urobilinogen < 2.0 mg/dL (<2.0) 09/20/17 06:15 Ur Leukocyte Esterase Neg (Negative) 09/20/17 06:15 Urine WBC (Auto) < 1.0 /HPF (0.0-6.0) 09/20/17 06:15 Urine RBC (Auto) 2.0 /HPF (0.0-6.0) 09/20/17 06:15 U Epithel Cells (Auto) 6.0 /HPF (0-13.0) 09/20/17 06:15 Urine Bacteria (Auto) 1+ /HPF (Negative) 09/20/17 06:15 Amorphous Crystals 1+ 09/20/17 06:15 Urine Mucus Few /HPF 09/20/17 06:15
[2017-09-25] MEDS: PERCOCET 5/325 PO PRN ×2 (17:23→23:00)
[2017-09-25] MEDS: COUMADIN PO SCH (17:24)
[2017-09-26] MEDS ORDERED: BENADRYL PO ONE (06:13)
[2017-09-26] MEDS: PERCOCET 5/325 PO PRN ×2 (06:21→13:34)
[2017-09-26] MEDS: HEPARIN SUB-Q SCH ×3 (06:22→22:02)
[2017-09-26 07:51] LABS: INR 0.99 (0.87-1.13)
[2017-09-26] MEDS: PEPCID PO SCH ×2 (09:56→22:02)
[2017-09-26] MEDS: PLAVIX PO SCH (09:56)
--- NOTE | 2017-09-26 12:54 | Progress Note ---
Assessment and Plan Assessment and plan: Patient is a 57-year-old right-handed woman woman with history of CVA with left sided weakness, hypertension, type 2 diabetes mellitus, asthma, atrial fib on Warfarin, tobacco dependency and obstructive sleep apnea who presents with worsening left sided weakness MRI brain without contrast reported as 5 mm focus of subacute ischemia in the right lateral thalamus/posterior limb of the right internal capsule, chronic focal area for the right coronal radiata, nonspecific chronic white matter changes -Acute ischemic infarct, patient admits to not being completely compliant with aspirin (she takes every other day): mri, change asa to plavix, consult neurology -Accelerated Hypertension: prn iv hydralazine -Dyslipidemia: start statin -Uncontrolled dm: add ssi -GI/DVT prophylaxis reviewed: Subcutaneous heparin -Chronic atrial fibrillation: will restart warfarin awaiting on placement History Interval history: Patient was seen and examined. Follow-up on current diagnosis. Overnight uneventful. Patient denies any chest pain, shortness breath, or severe headaches. Imaging, nursing note, chart, labs and old chart reviewed. Discussed with patient. She complains of nausea but no vomiting or abdominal pain. Hospitalist Physical - Physical exam Narrative exam: GEN: WDWN, NAD, AWAKE, ALERT, ORIENTATED 3 HEENT: NCAT, EOMI, PERRL, OP Clear NECK: supple, no adenopathy, no thyromegaly, no JVD CVS/HEART: Irregular irregular NORMAL S1S2, NO JVD, pulses present bilaterally CHEST/LUNGS: CTA B, Symmetrical chest expansion, good air entry bilaterally GI/Abdomen: soft, NTND, good bowel sounds, no guarding or rebound /Bladder: no suprapubic tenderness, no CVA or paraspinal tenderness EXT/Skin: no c/c/e, no obvious rash MSK: Left hemiparesis Neuro: CN 2-12 grossly intact, left pronator drift, left sided sensory deficits and expressive aphasia Psych: calm - Constitutional Vitals: Temp Pulse Resp BP Pulse Ox 98.3 F 80 20 155/87 95 09/26/17 12:36 09/26/17 12:36 09/26/17 12:36 09/26/17 12:36 09/26/17 12:36 General appearance: Present: no acute distress, well-nourished Results - Labs CBC & Chem 7: 09/25/17 05:48 09/25/17 05:48 Labs: Laboratory Last Values WBC 9.0 K/mm3 (4.5-11.0) 09/25/17 05:48 RBC 5.37 M/mm3 (3.65-5.03) H 09/25/17 05:48 Hgb 14.8 gm/dl (10.1-14.3) H 09/25/17 05:48 Hct 45.4 % (30.3-42.9) H 09/25/17 05:48 MCV 84 fl (79-97) 09/25/17 05:48 MCH 28 pg (28-32) 09/25/17 05:48 MCHC 33 % (30-34) 09/25/17 05:48 RDW 14.5 % (13.2-15.2) 09/25/17 05:48 Plt Count 248 K/mm3 (140-440) 09/25/17 05:48 Lymph % (Auto) 24.6 % (13.4-35.0) 09/21/17 04:48 [place] % (Auto) 5.7 % (0.0-7.3) 09/21/17 04:48 Eos % (Auto) 2.9 % (0.0-4.3) 09/21/17 04:48 Baso % (Auto) 0.7 % (0.0-1.8) 09/21/17 04:48 Lymph # 2.5 K/mm3 (1.2-5.4) 09/21/17 04:48 [place] # 0.6 K/mm3 (0.0-0.8) 09/21/17 04:48 Eos # 0.3 K/mm3 (0.0-0.4) 09/21/17 04:48 Baso # 0.1 K/mm3 (0.0-0.1) 09/21/17 04:48 Seg Neutrophils % 66.1 % (40.0-70.0) 09/21/17 04:48 Seg Neutrophils # 6.7 K/mm3 (1.8-7.7) 09/21/17 04:48 PT 13.6 Sec. (12.2-14.9) 09/26/17 06:55 INR 0.99 (0.87-1.13) 09/26/17 06:55 APTT 54.9 Sec. (24.2-36.6) H 09/20/17 09:23 Sodium 143 mmol/L (137-145) 09/25/17 05:48 Potassium 4.3 mmol/L (3.6-5.0) 09/25/17 05:48 Chloride 100.6 mmol/L (98-107) 09/25/17 05:48 Carbon Dioxide 27 mmol/L (22-30) 09/25/17 05:48 Anion Gap 20 mmol/L 09/25/17 05:48 BUN 10 mg/dL (7-17) 09/25/17 05:48 Creatinine 0.6 mg/dL (0.7-1.2) L 09/25/17 05:48 Estimated GFR > 60 ml/min 09/25/17 05:48 BUN/Creatinine Ratio 17 % 09/25/17 05:48 Glucose 126 mg/dL (65-100) H 09/25/17 05:48 POC Glucose 94 (70-105) 09/25/17 21:40 Hemoglobin A1c 6.4 % (4-6) H 09/20/17 09:23 Calcium 9.8 mg/dL (8.4-10.2) 09/25/17 05:48 Total Bilirubin 1.10 mg/dL (0.1-1.2) 09/21/17 04:48 Direct Bilirubin < 0.2 mg/dL (0-0.2) 09/20/17 09:23 Indirect Bilirubin 0.4 mg/dL 09/20/17 09:23 AST 14 units/L (5-40) 09/21/17 04:48 ALT 14 units/L (7-56) 09/21/17 04:48 Alkaline Phosphatase 77 units/L (35-129) 09/21/17 04:48 Troponin T < 0.010 ng/mL (0.00-0.029) 09/20/17 09:23 Total Protein 6.5 g/dL (6.3-8.2) 09/21/17 04:48 Albumin 3.5 g/dL (3.9-5) L 09/21/17 04:48 Albumin/Globulin Ratio 1.2 % 09/21/17 04:48 Triglycerides 301 mg/dL (2-149) H 09/21/17 04:48 Cholesterol 205 mg/dL (50-199) H 09/21/17 04:48 LDL Cholesterol Direct 99 mg/dL (50-130) 09/21/17 04:48 HDL Cholesterol 46 mg/dL (40-59) 09/21/17 04:48 Cholesterol/HDL Ratio 4.45 % 09/21/17 04:48 TSH 0.479 mlU/mL (0.270-4.200) 09/20/17 09:23 Urine Color Yellow (Yellow) 09/20/17 06:15 Urine Turbidity Cloudy (Clear) 09/20/17 06:15 Urine pH 8.0 (5.0-7.0) H 09/20/17 06:15 Ur Specific [place] 1.013 (1.003-1.030) 09/20/17 06:15 Urine Protein 100 mg/dl mg/dL (Negative) 09/20/17 06:15 Urine Glucose (UA) 50 mg/dL (Negative) 09/20/17 06:15 Urine Ketones Neg mg/dL (Negative) 09/20/17 06:15 Urine Blood Neg (Negative) 09/20/17 06:15 Urine Nitrite Neg (Negative) 09/20/17 06:15 Urine Bilirubin Neg (Negative) 09/20/17 06:15 Urine Urobilinogen < 2.0 mg/dL (<2.0) 09/20/17 06:15 Ur Leukocyte Esterase Neg (Negative) 09/20/17 06:15 Urine WBC (Auto) < 1.0 /HPF (0.0-6.0) 09/20/17 06:15 Urine RBC (Auto) 2.0 /HPF (0.0-6.0) 09/20/17 06:15 U Epithel Cells (Auto) 6.0 /HPF (0-13.0) 09/20/17 06:15 Urine Bacteria (Auto) 1+ /HPF (Negative) 09/20/17 06:15 Amorphous Crystals 1+ 09/20/17 06:15 Urine Mucus Few /HPF 09/20/17 06:15
[2017-09-26] MEDS: APRESOLINE IV PRN (16:33)
[2017-09-26] MEDS: COUMADIN PO SCH (16:33)
[2017-09-26] MEDS: ZOFRAN IV PRN (18:53)
[2017-09-27] MEDS: HEPARIN SUB-Q SCH (05:45)
[2017-09-27 06:25] LABS: INR 1.1 (0.87-1.13)
[2017-09-27] MEDS: MORPHINE IV PRN ×2 (06:26→09:24)
[2017-09-27 08:52] VITALS: BP 159/104
[2017-09-27] MEDS: PLAVIX PO SCH (09:24)
[2017-09-27] MEDS: PEPCID PO SCH (09:24)
--- NOTE | 2017-09-27 11:00 | Progress Note ---
Assessment and Plan Assessment and plan: Patient is a 57-year-old right-handed woman woman with history of CVA with left sided weakness, hypertension, type 2 diabetes mellitus, asthma, atrial fib on Warfarin, tobacco dependency and obstructive sleep apnea who presents with worsening left sided weakness MRI brain without contrast reported as 5 mm focus of subacute ischemia in the right lateral thalamus/posterior limb of the right internal capsule, chronic focal area for the right coronal radiata, nonspecific chronic white matter changes -Acute ischemic infarct, patient admits to not being completely compliant with aspirin (she takes every other day): mri, change asa to plavix, consult neurology -Accelerated Hypertension: prn iv hydralazine -Dyslipidemia: start statin -Uncontrolled dm: add ssi -GI/DVT prophylaxis reviewed: Subcutaneous heparin -Chronic atrial fibrillation: will restart warfarin awaiting on placement History Interval history: Patient was seen and examined. Follow-up on current diagnosis. Overnight uneventful. Patient denies any chest pain, shortness breath, or severe headaches. Imaging, nursing note, chart, labs and old chart reviewed. Discussed with patient. She complains of nausea but no vomiting or abdominal pain, relieved by Reglan. Hospitalist Physical - Physical exam Narrative exam: GEN: WDWN, NAD, AWAKE, ALERT, ORIENTATED 3 HEENT: NCAT, EOMI, PERRL, OP Clear NECK: supple, no adenopathy, no thyromegaly, no JVD CVS/HEART: Irregular irregular NORMAL S1S2, NO JVD, pulses present bilaterally CHEST/LUNGS: CTA B, Symmetrical chest expansion, good air entry bilaterally GI/Abdomen: soft, NTND, good bowel sounds, no guarding or rebound /Bladder: no suprapubic tenderness, no CVA or paraspinal tenderness EXT/Skin: no c/c/e, no obvious rash MSK: Left hemiparesis Neuro: CN 2-12 grossly intact, left pronator drift, left sided sensory deficits and expressive aphasia Psych: calm - Constitutional Vitals: Temp Pulse Resp BP Pulse Ox 98.5 F 88 18 159/104 100 09/27/17 08:51 09/27/17 08:51 09/27/17 08:51 09/27/17 08:51 09/27/17 08:51 General appearance: Present: no acute distress, well-nourished Results - Labs CBC & Chem 7: 09/25/17 05:48 01/06/18 05:48 Labs: Laboratory Last Values WBC 9.0 K/mm3 (4.5-11.0) 09/25/17 05:48 RBC 5.37 M/mm3 (3.65-5.03) H 09/25/17 05:48 Hgb 14.8 gm/dl (10.1-14.3) H 09/25/17 05:48 Hct 45.4 % (30.3-42.9) H 09/25/17 05:48 MCV 84 fl (79-97) 09/25/17 05:48 MCH 28 pg (28-32) 09/25/17 05:48 MCHC 33 % (30-34) 09/25/17 05:48 RDW 14.5 % (13.2-15.2) 09/25/17 05:48 Plt Count 248 K/mm3 (140-440) 09/25/17 05:48 Lymph % (Auto) 24.6 % (13.4-35.0) 09/21/17 04:48 [place] % (Auto) 5.7 % (0.0-7.3) 09/21/17 04:48 Eos % (Auto) 2.9 % (0.0-4.3) 09/21/17 04:48 Baso % (Auto) 0.7 % (0.0-1.8) 09/21/17 04:48 Lymph # 2.5 K/mm3 (1.2-5.4) 09/21/17 04:48 [place] # 0.6 K/mm3 (0.0-0.8) 09/21/17 04:48 Eos # 0.3 K/mm3 (0.0-0.4) 09/21/17 04:48 Baso # 0.1 K/mm3 (0.0-0.1) 09/21/17 04:48 Seg Neutrophils % 66.1 % (40.0-70.0) 09/21/17 04:48 Seg Neutrophils # 6.7 K/mm3 (1.8-7.7) 09/21/17 04:48 PT 14.8 Sec. (12.2-14.9) 09/27/17 05:22 INR 1.10 (0.87-1.13) 09/27/17 05:22 APTT 54.9 Sec. (24.2-36.6) H 09/20/17 09:23 Sodium 143 mmol/L (137-145) 09/25/17 05:48 Potassium 4.3 mmol/L (3.6-5.0) 09/25/17 05:48 Chloride 100.6 mmol/L (98-107) 09/25/17 05:48 Carbon Dioxide 27 mmol/L (22-30) 09/25/17 05:48 Anion Gap 20 mmol/L 09/25/17 05:48 BUN 10 mg/dL (7-17) 09/25/17 05:48 Creatinine 0.6 mg/dL (0.7-1.2) L 09/25/17 05:48 Estimated GFR > 60 ml/min 09/25/17 05:48 BUN/Creatinine Ratio 17 % 09/25/17 05:48 Glucose 126 mg/dL (65-100) H 09/25/17 05:48 POC Glucose 102 (70-105) 09/27/17 08:26 Hemoglobin A1c 6.4 % (4-6) H 09/20/17 09:23 Calcium 9.8 mg/dL (8.4-10.2) 09/25/17 05:48 Total Bilirubin 1.10 mg/dL (0.1-1.2) 09/21/17 04:48 Direct Bilirubin < 0.2 mg/dL (0-0.2) 09/20/17 09:23 Indirect Bilirubin 0.4 mg/dL 09/20/17 09:23 AST 14 units/L (5-40) 09/21/17 04:48 ALT 14 units/L (7-56) 09/21/17 04:48 Alkaline Phosphatase 77 units/L (35-129) 09/21/17 04:48 Troponin T < 0.010 ng/mL (0.00-0.029) 09/20/17 09:23 Total Protein 6.5 g/dL (6.3-8.2) 09/21/17 04:48 Albumin 3.5 g/dL (3.9-5) L 09/21/17 04:48 Albumin/Globulin Ratio 1.2 % 09/21/17 04:48 Triglycerides 301 mg/dL (2-149) H 09/21/17 04:48 Cholesterol 205 mg/dL (50-199) H 09/21/17 04:48 LDL Cholesterol Direct 99 mg/dL (50-130) 09/21/17 04:48 HDL Cholesterol 46 mg/dL (40-59) 09/21/17 04:48 Cholesterol/HDL Ratio 4.45 % 09/21/17 04:48 TSH 0.479 mlU/mL (0.270-4.200) 09/20/17 09:23 Urine Color Yellow (Yellow) 09/20/17 06:15 Urine Turbidity Cloudy (Clear) 09/20/17 06:15 Urine pH 8.0 (5.0-7.0) H 09/20/17 06:15 Ur Specific [place] 1.013 (1.003-1.030) 09/20/17 06:15 Urine Protein 100 mg/dl mg/dL (Negative) 09/20/17 06:15 Urine Glucose (UA) 50 mg/dL (Negative) 09/20/17 06:15 Urine Ketones Neg mg/dL (Negative) 09/20/17 06:15 Urine Blood Neg (Negative) 09/20/17 06:15 Urine Nitrite Neg (Negative) 09/20/17 06:15 Urine Bilirubin Neg (Negative) 09/20/17 06:15 Urine Urobilinogen < 2.0 mg/dL (<2.0) 09/20/17 06:15 Ur Leukocyte Esterase Neg (Negative) 09/20/17 06:15 Urine WBC (Auto) < 1.0 /HPF (0.0-6.0) 09/20/17 06:15 Urine RBC (Auto) 2.0 /HPF (0.0-6.0) 09/20/17 06:15 U Epithel Cells (Auto) 6.0 /HPF (0-13.0) 09/20/17 06:15 Urine Bacteria (Auto) 1+ /HPF (Negative) 09/20/17 06:15 Amorphous Crystals 1+ 09/20/17 06:15 Urine Mucus Few /HPF 09/20/17 06:15
--- NOTE | 2017-09-27 11:06 | Discharge Summary ---
Providers - Providers Date of Admission: 09/20/17 11:35 Date of discharge: 09/27/17 Attending physician: SHARON TREVIÑO 09/20/17 Consult to Physician [CONS] Routine Consulting Provider: SOL CASANOVA Reason For Exam: cva Place consult to:: neuro Notified:: y 09/20/17 21:11 Consult to Physician [CONS] Routine Consulting Provider: SOL CASANOVA Reason For Exam: CVA Place consult to:: neuro Notified:: office Phone number called:: [phone] Was contact made?: Yes Time called:: 09:43 09/20/17 21:14 Occupational Therapy Evaluate and Treat [CONS] Routine Comment: Reason For Exam: Neuro deficits Physical Therapy Evaluation and Treat [CONS] Routine Comment: Reason For Exam: Neuro deficits Primary care physician: RHIANNON STARKEY Hospitalization Condition: Stable Hospital course: Patient is a 57-year-old right-handed woman woman with history of CVA with left sided weakness, hypertension, type 2 diabetes mellitus, asthma, atrial fib on Warfarin, tobacco dependency and obstructive sleep apnea who presents with worsening left sided weakness MRI brain without contrast reported as 5 mm focus of subacute ischemia in the right lateral thalamus/posterior limb of the right internal capsule, chronic focal area for the right coronal radiata, nonspecific chronic white matter changes -Acute ischemic infarct, patient admits to not being completely compliant with aspirin (she takes every other day): mri, change asa to plavix, consult neurology -Accelerated Hypertension: prn iv hydralazine -Afib, chronically on Warfarin -Dyslipidemia: start statin -Uncontrolled dm: add ssi -GI/DVT prophylaxis reviewed: Subcutaneous heparin -Chronic atrial fibrillation: will restart warfarin awaiting on placement Disposition: DC/[place]-03 [facility] Time spent for discharge: 34 minutes Core Measure Documentation - Palliative Care Palliative Care/ Comfort Measures: Not Applicable - Core Measures Any of the following diagnoses?: stroke - VTE Discharge Requirements Deep Vein Thrombosis/Pulmonary Embolism Present on Admission: No Has pt received <5 days of overlap therapy or INR<2.0: No Anticoagulant overlap therapy prescribed at discharge: No Contraindication No Overlap Therapy order at DC: Not Indicated - Stroke Discharge Requirements Statin for LDL = or >70 mg/dl on DC: Yes Anticoag for atrial fib/atrial flutter: Yes Antithrombotic for ischemic stroke: Yes Exam - Physical Exam Narrative exam: GEN: WDWN, NAD, AWAKE, ALERT, ORIENTATED 3 HEENT: NCAT, EOMI, PERRL, OP Clear NECK: supple, no adenopathy, no thyromegaly, no JVD CVS/HEART: Irregular irregular NORMAL S1S2, NO JVD, pulses present bilaterally CHEST/LUNGS: CTA B, Symmetrical chest expansion, good air entry bilaterally GI/Abdomen: soft, NTND, good bowel sounds, no guarding or rebound /Bladder: no suprapubic tenderness, no CVA or paraspinal tenderness EXT/Skin: no c/c/e, no obvious rash MSK: Left hemiparesis Neuro: CN 2-12 grossly intact, left pronator drift, left sided sensory deficits and expressive aphasia Psych: calm - Constitutional Vitals: Temp Pulse Resp BP Pulse Ox 98.5 F 88 18 159/104 100 09/27/17 08:51 09/27/17 08:51 09/27/17 08:51 09/27/17 08:51 09/27/17 08:51 Plan Activity: up only with assistance, fall precautions, other (no strenous activity until cleared by rehabilitation physician) Diet: low salt Special Instructions: record daily BP diary, record blood sugar diary Follow up with: RHIANNON STARKEY MD [Primary Care Provider] - 3-5 Days Forms: Warfarin Discharge Instruction Prescriptions: AtorvaSTATin [Lipitor] 20 mg PO QHS #30 tablet Bisacodyl [Dulcolax suppos] 10 mg ND QDAY PRN #20 supp.rect PRN Reason: Constipation Clopidogrel [Plavix] 75 mg PO QDAY #30 tablet oxyCODONE /ACETAMINOPHEN [Percocet 5/325 mg] 1 tab PO Q6H PRN #20 tablet PRN Reason: Pain , Severe (7-10)
--- NOTE | 2017-10-01 10:10 | Query- Dyspnea ---
Ivory Pan Usama Date:___10/01/17 Medical Laboratory Specialist/CDS: Mandie / Donte Phone#:____[phone] Exercise your independent professional judgment when responding to query. Questions asked do not imply a particular answer is desired or expected. We greatly appreciate your clarification on this issue. Clinical Documentation States: 57 year old female was admitted on 09/20/17 The discharge summary (Dr. Forrester) states " Patient is a 57-year-old right-handed woman woman with history of CVA with left sided weakness, and obstructive sleep apnea who presents with worsening left sided weakness " Clinical Findings Show: O2 SAT: 89% O2 flow rate: 3 L/min Please clarify if the patient had any of the following conditions based on the above clinical findings: [ ] Respiratory Failure [ ] Acute [ ] Acute on Chronic [ ] Chronic [ ] Respiratory failure due to trauma [ ] Acute Respiratory Distress Syndrome [ ] Other: [x ] Unable to determine, was patient's O2 SAT 89% on 3 liters? if so then this was acute respiratory failure, poa [ ] Comment/Explanation: Present on Admission: [ ] Yes (Y) [x ] Clinically undeterminable (W) [ ] No (N) Please also document response in your Progress Notes and/or Discharge Summary and indicate if the condition was present on admission. BEATRICE
== END 2017-09-27 14:20 | DRG 64 ==
LOC: ED 06:29 → 4A 11:35
PROVIDERS: ADMIT Internal Medicine; ATTEND Internal Medicine
PROC: 3E0234Z Introduction of Serum, Toxoid and Vaccine into Muscle, Percutaneous Approach (ICD-10-PCS; principal; 2017-09-21)
DX: I63.9 Cerebral infarction, unspecified (principal); J96.00 Acute respiratory failure, unspecified whether with hypoxia or hypercapnia; G81.94 Hemiplegia, unspecified affecting left nondominant side; I10 Essential (primary) hypertension; E11.9 Type 2 diabetes mellitus without complications; G47.33 Obstructive sleep apnea (adult) (pediatric); F17.200 Nicotine dependence, unspecified, uncomplicated; E78.5 Hyperlipidemia, unspecified; I48.2 Chronic atrial fibrillation; Z90.710 Acquired absence of both cervix and uterus; Z23 Encounter for immunization; Z79.899 Other long term (current) drug therapy
CPT/HCPCS: 36415; 70450; 70544; 70551; 80048; 80053; 80061; 80074; 81001; 82962; 83036; 84443; 84484; 85025; 85027; 85610; 85730; 90686; 93005; 93010; 93306; 93880; 99406; A9270-GY; G8978-GP; G8979-GP; J0360; J1644; J2270; J2405; J2765

== ENCOUNTER 2018-06-11 19:26 | Emergency (ER) | payer MEDICARE ==
[2018-06-11 22:48] LABS: Bacteria,Urine 1+ /HPF (Negative); Bilirubin,Urine NEG (Negative); Blood,Urine NEG (Negative); Color,Urine Straw (Yellow); Mucus,Urine FEW /HPF; Protein,Urine <15 mg/dL mg/dL (Negative); Urobilinogen,Urine < 2.0 mg/dL (<2.0)
[2018-06-11] MEDS ORDERED: TORADOL IM ONE (23:54)
--- NOTE | 2018-06-11 23:54 | Emergency Department Report ---
ED General Adult HPI - General Chief complaint: Pain General Stated complaint: TAILBONE PAIN Time Seen by Provider: 06/11/18 23:47 Source: patient Mode of arrival: Wheelchair Limitations: Physical Limitation - History of Present Illness Initial comments: Patient is a 57-year-old -[place] female with history of chronic back pain presents for low back pain times 1 year saw PCP yesterday advised increased gabapentin dose patient presents to ED for strong pain medication patient denies fall or injury or other trauma pain is 4/10 and aching then complete nigts sleep there is no numbness no tingling no loss or decrease in bowel or bladder function symptoms are exacerbated by prolonged standing walking stair climbing and sitting Onset/Timin -: year(s) Location: back Radiation: non-radiation Severity scale (0 -10): 4 Quality: aching Consistency: intermittent Improves with: none Worsens with: movement, other (prolonged standing walking sitting ) Associated Symptoms: denies other symptoms Treatments Prior to Arrival: none - Related Data Home Medications Medication Instructions Recorded Confirmed Last Taken Carvedilol [Coreg] 25 mg PO BID 09/21/17 05/19/18 09/19/17 Lisinopril [Zestril] 40 mg PO DAILY 09/21/17 05/19/18 09/19/17 metFORMIN [Glucophage] 750 mg PO BID 09/21/17 05/19/18 09/19/17 Gabapentin [Neurontin] 400 mg PO DAILY 05/19/18 05/19/18 Unknown Spironolactone 25 mg PO DAILY 05/19/18 05/19/18 Unknown Torsemide [Demadex] 100 mg PO QDAY 05/19/18 05/19/18 Unknown Previous Rx's Medication Instructions Recorded Last Taken Type AtorvaSTATin [Lipitor] 20 mg PO QHS #30 tablet 09/27/17 Unknown Rx Furosemide [Lasix TAB] 40 mg PO QDAY #30 tablet 05/21/18 Unknown Rx oxyCODONE /ACETAMINOPHEN [Percocet 1 tab PO DAILY PRN #7 tablet 05/21/18 Unknown Rx 5/325 mg] Cyclobenzaprine [Flexeril] 10 mg PO BID PRN #20 tablet 06/12/18 Unknown Rx Menthol/Camphor [[place] 1 applicatio TP TID PRN #1 tube 06/12/18 Unknown Rx Ointment] Naproxen [Naprosyn TAB] 500 mg PO BID #30 tablet 06/12/18 Unknown Rx Allergies Allergy/AdvReac Type Severity Reaction Status Date / Time No Known Allergies Allergy Verified 05/18/18 21:22 ED Review of Systems ROS: Stated complaint: TAILBONE PAIN Other details as noted in HPI Constitutional: denies: chills, fever Eyes: denies: eye pain, eye discharge, vision change ENT: denies: ear pain, throat pain Respiratory: denies: cough, shortness of breath, wheezing Cardiovascular: denies: chest pain, palpitations Endocrine: no symptoms reported Gastrointestinal: denies: abdominal pain, nausea, diarrhea Genitourinary: denies: urgency, dysuria, discharge Musculoskeletal: back pain. denies: joint swelling, arthralgia Skin: denies: rash, lesions Neurological: denies: headache, weakness, paresthesias Psychiatric: denies: anxiety, depression Hematological/Lymphatic: denies: easy bleeding, easy bruising ED Past Medical Hx - Past Medical History Hx Hypertension: Yes Hx CVA: Yes Hx Congestive Heart Failure: Yes Hx Diabetes: Yes Hx Deep Vein Thrombosis: Yes Hx Asthma: Yes Additional medical history: Sleep Apnea - Surgical History Additional Surgical History: Hysterectomy, - Social History Smoking Status: Never Smoker Substance Use Type: None - Medications Home Medications: Home Medications Medication Instructions Recorded Confirmed Last Taken Type Carvedilol [Coreg] 25 mg PO BID 09/21/17 05/19/18 09/19/17 History Lisinopril [Zestril] 40 mg PO DAILY 09/21/17 05/19/18 09/19/17 History metFORMIN [Glucophage] 750 mg PO BID 09/21/17 05/19/18 09/19/17 History AtorvaSTATin [Lipitor] 20 mg PO QHS #30 tablet 09/27/17 05/19/18 Unknown Rx Gabapentin [Neurontin] 400 mg PO DAILY 05/19/18 05/19/18 Unknown History Spironolactone 25 mg PO DAILY 05/19/18 05/19/18 Unknown History Torsemide [Demadex] 100 mg PO QDAY 05/19/18 05/19/18 Unknown History Furosemide [Lasix TAB] 40 mg PO QDAY #30 tablet 05/21/18 Unknown Rx oxyCODONE /ACETAMINOPHEN [Percocet 1 tab PO DAILY PRN #7 tablet 05/21/18 Unknown Rx 5/325 mg] Cyclobenzaprine [Flexeril] 10 mg PO BID PRN #20 tablet 06/12/18 Unknown Rx Menthol/Camphor [[place] 1 applicatio TP TID PRN #1 tube 06/12/18 Unknown Rx Ointment] Naproxen [Naprosyn TAB] 500 mg PO BID #30 tablet 06/12/18 Unknown Rx ED Physical Exam - General Limitations: Physical Limitation General appearance: alert, in no apparent distress - Head Head exam: Present: atraumatic - Eye Eye exam: Present: normal appearance - ENT ENT exam: Present: mucous membranes moist - Neck Neck exam: Present: normal inspection, full ROM. Absent: tenderness, meningismus, lymphadenopathy, thyromegaly - Respiratory Respiratory exam: Present: normal lung sounds bilaterally. Absent: respiratory distress, chest wall tenderness - Cardiovascular Cardiovascular Exam: Present: regular rate, normal rhythm, normal heart sounds. Absent: systolic murmur, diastolic murmur, rubs, gallop - GI/Abdominal GI/Abdominal exam: Present: soft, normal bowel sounds - Rectal Rectal exam: Present: deferred - Extremities Exam Extremities exam: Present: normal inspection - Back Exam Back exam: Present: muscle spasm, paraspinal tenderness (there is no posterior vertebral point tenderness mild paraspinous muscle tenderness to deep palpation range of motion intact negative straight leg patient is ambulatory to baseline per patient). Absent: CVA tenderness (R), CVA tenderness (L), vertebral tenderness, rash noted - Expanded Back Exam Expanded Back exam: Absent: saddle anesthesia Back exam: Negative Straight Leg Raising: Left, Right - Neurological Exam Neurological exam: Present: alert, oriented X3 - Expanded Neurological Exam Expanded Patient oriented to: Present: person, place Speech: Present: fluid speech Cranial nerves: EOM's Intact: Normal, Gag Reflex: Normal, Tongue Deviation: Normal, Nystagmus: Normal, Facial Sensation: Normal, Facial Palsy with Forehead Movement: Normal, Facial Palsy without Forehead Movement: Normal Cerebellar function: Finger to Nose: Normal, Heel to Jimenez: Normal, Romberg: Normal Upper motor neuron: Jasmeet Neglect: Normal, Pronator Drift: Normal, Babinski Sign : Normal, Sensory Extinction: Normal Sensory exam: Upper Extremity Light Touch: Normal, Upper Extremity Pin Prick: Normal, Upper Extremity Temperature: Normal, UE 2 Point Discrimination: Normal, Lower Extremity Light Touch: Normal, Lower Extremity Pin Prick: Normal Motor strength exam: RUE: 5, LUE: 5, RLE: 5, LLE: 5 DTR: bicep (R): 2+, bicep (L): 2+, tricep (R): 2+, tricep (L): 2+, knee (R): 2+ , knee (L): 2+, ankle (R): 2+, ankle (L): 2+ Best Eye Response ([place]): (4) open spontaneously Best Motor Response ([place]): (6) obeys commands Best Verbal Response ([place]): (5) oriented [place] Total: 15 - Psychiatric Psychiatric exam: Present: normal affect - Skin Skin exam: Present: warm, dry, intact, normal color. Absent: rash ED Course Vital Signs 06/11/18 06/11/18 19:32 19:45 Temperature 99.7 F H 99.7 F H Pulse Rate 91 H 90 Respiratory 18 16 Rate Blood Pressure 120/66 120/66 O2 Sat by Pulse 92 98 Oximetry ED Medical Decision Making - Lab Data Laboratory Tests 06/11/18 22:30 Urine Color Straw Urine Turbidity Clear Urine pH 5.0 Ur Specific [place] 1.009 Urine Protein <15 mg/dl Urine Glucose (UA) Neg Urine Ketones Neg Urine Blood Neg Urine Nitrite Neg Urine Bilirubin Neg Urine Urobilinogen < 2.0 Ur Leukocyte Esterase Neg Urine WBC (Auto) 1.0 Urine RBC (Auto) 1.0 U Epithel Cells (Auto) 1.0 Urine Bacteria (Auto) 1+ Urine Mucus Few - Medical Decision Making This acute on chronic back pain is no posterior vertebral point tenderness mild paraspinous tenderness to deep palpation range of motion is intact patient is admitted to a steady gait UA normal pain improved with Toradol given in ED plan DC'd home with naproxen and Flexeril moist heat therapy patient has PCP will follow-up with maxim in 2 days patient scheduled for the next week as well patient will be DC'd home in stable condition at this time Critical care attestation.: If time is entered above; I have spent that time in minutes in the direct care of this critically ill patient, excluding procedure time. ED Disposition Clinical Impression: Low back strain Qualifiers: Encounter type: initial encounter Qualified Code(s): S39.012A - Strain of muscle, fascia and tendon of lower back, initial encounter Disposition: TO HOME OR SELFCARE Is pt being admited?: No Does the pt Need Aspirin: No Condition: Good Instructions: Low Back Strain (ED), Core Strengthening Exercises (GEN) Additional Instructions: follow up with pcp Dr. Levin and orthopedic surgery as scheduled Prescriptions: Cyclobenzaprine [Flexeril] 10 mg PO BID PRN #20 tablet PRN Reason: Muscle Spasm Menthol/Camphor [[place] Ointment] 1 applicatio TP TID PRN #1 tube PRN Reason: pain Naproxen [Naprosyn TAB] 500 mg PO BID #30 tablet Referrals: PRIMARY CARE, [Primary Care Provider] - 3-5 Days Forms: Work/School Release Form(ED) Time of Disposition: 00:05
[2018-06-12 02:13] VITALS: BP 124/68
== END 2018-06-12 00:15 | disposition home or self-care (01) ==
LOC: ED 19:26
DX: S39.012A Strain of muscle, fascia and tendon of lower back, initial encounter (principal); I11.0 Hypertensive heart disease with heart failure; I50.9 Heart failure, unspecified; E11.9 Type 2 diabetes mellitus without complications; J45.909 Unspecified asthma, uncomplicated; Z86.73 Personal history of transient ischemic attack (TIA), and cerebral infarction without residual deficits; Z86.718 Personal history of other venous thrombosis and embolism; Z90.710 Acquired absence of both cervix and uterus; Z79.84 Long term (current) use of oral hypoglycemic drugs; X58.XXXA Exposure to other specified factors, initial encounter; Y93.89 Activity, other specified; Y92.89 Other specified places as the place of occurrence of the external cause; Y99.8 Other external cause status
CPT/HCPCS: 81001; 96372; 99283; J1885

== ENCOUNTER 2019-05-29 13:44 | Emergency (ER) | payer MEDICARE ==
--- NOTE | 2019-05-29 13:53 | Emergency Department Report ---
Blank Doc - Documentation Documentation: 58-year-old female that presents with SOB and bilateral leg swelling. This initial assessment/diagnostic orders/clinical plan/treatment(s) is/are subject to change based on patient's health status, clinical progression and re- assessment by fellow clinical providers in the ED. Further treatment and workup at subsequent clinical providers discretion. Patient/guardians urged not to elope from the ED as their condition may be serious if not clinically assessed and managed. Initial orders include: 1- Patient sent to MAIN for further evaluation and treatment 2- labs 3- EKG 4- CXR
[2019-05-29 14:25] LABS: Eosinophils % (Auto) 2.5 % (0.0-4.3); Hematocrit 32.2 % (30.3-42.9); Hemoglobin 10.6 gm/dl (10.1-14.3); Lymphocytes % (Auto) 16.9 % (13.4-35.0); Mean Corpuscular HGB Conc 33 % (30-34); Mean Corpuscular Volume 87 fl (79-97); Platelet Count 211 K/mm3 (140-440); Red Blood Count 3.69 M/mm3 (3.65-5.03); Red Cell Distribution Width 15.5 % (13.2-15.2)
[2019-05-29 14:26] LABS: Basophils # (Auto) 0.1 K/mm3 (0.0-0.1); Basophils % (Auto) 1.1 % (0.0-1.8); Eosinophils # (Auto) 0.2 K/mm3 (0.0-0.4); Lymphocytes # (Auto) 1.6 K/mm3 (1.2-5.4); Monocytes # (Auto) 0.6 K/mm3 (0.0-0.8)
[2019-05-29 14:37] LABS: INR 1.25 (0.87-1.13)
[2019-05-29 14:38] LABS: Partial Thromboplastin Time 31.4 Sec. (24.2-36.6)
[2019-05-29 14:45] LABS: BUN/Creatinine Ratio 15; Blood Urea Nitrogen 17 mg/dL (7-17); Calcium 9.2 mg/dL (8.4-10.2); Hemolysis Index 7
--- NOTE | 2019-05-29 15:20 | XRay Report ---
CHEST 2 VIEWS INDICATION: Chest Pain. COMPARISON: 06/19/2018 report FINDINGS: Support devices: None. Heart: Borderline to mild cardiomegaly is evident. Lungs/pleura: No acute air space or interstitial disease. There is minor linear scarring or atelecta sis in the lingula. No evidence for infiltrate, pleural effusion or pneumothorax. Additional findings: None. IMPRESSION: Borderline to mild cardiomegaly. Signer Name: Rasheed Riley Jr, MD Signed: 05/29/2019 3:15 PM Workstation Name: [id number]
[2019-05-29] MEDS ORDERED: PERCOCET 5/325 PO ONE (19:20)
--- NOTE | 2019-05-29 20:18 | Emergency Department Report ---
ED Lower Extremity HPI - General Chief Complaint: Dyspnea/Respdistress Stated Complaint: LEFT FOOT PAIN Time Seen by Provider: 05/29/19 13:52 Source: patient Mode of arrival: Ambulatory Limitations: No Limitations - History of Present Illness Initial Comments: Mrs. Guadalupe is a 58-year-old female with history of CVA, CHF, diabetes mellitus, hypertension, peripheral neuropathy, chronic back pain due to herniated disc, atrial fibrillation on Eliquis who presents via EMS for leg burning and "a little bit of shortness of breath." For the past 3 weeks, Mrs. Guadalupe has had left leg burning. No trauma. No history of DVT. She has not noticed any swelling. Upon further history with daughter, she takes Neurontin for peripheral neuropathy. Both legs tend to burn. However the left leg has been more than normal. Tylenol has not provided any relief. She has only minimal shortness of breath which appears to be at baseline for her. She denies chest pain. Denies fever. No other concerns. She is followed by a physician at [facility]. Complaint: other (leg pain and burning) -: Gradual, week(s) (3) Injury: Leg: Left Type of Injury: unknown Place: home Severity: severe Severity scale (0 -10): 8 Improves With: nothing Worsens With: other (cramping type pain) - Related Data Home Medications Medication Instructions Recorded Confirmed Last Taken ALBUTEROL Inhaler (OR & NICU) 2 puff IH QID PRN 05/29/19 05/29/19 Unknown [Proair] Acetaminophen [Tylenol] 500 mg PO BID 05/29/19 05/29/19 Unknown Apixaban [Eliquis] 5 mg PO Q12H 05/29/19 05/29/19 Unknown AtorvaSTATin [Lipitor] 40 mg PO DAILY 05/29/19 05/29/19 Unknown Baclofen [Lioresal] 5 mg PO TID 05/29/19 05/29/19 Unknown Gabapentin [Neurontin] 900 mg PO TID 05/29/19 05/29/19 Unknown Ibuprofen [Ibu-200] 200 mg PO TID 05/29/19 05/29/19 Unknown Insulin Glargine [Lantus] 25 unit SUB-Q QHS 05/29/19 05/29/19 Unknown Lisinopril [Zestril] 20 mg PO DAILY 05/29/19 05/29/19 Unknown Mupirocin [Bactroban 2% CREAM] 1 applicatio TP TID 05/29/19 05/29/19 Unknown Spironolactone [Aldactone] 25 mg PO DAILY 05/29/19 05/29/19 Unknown Torsemide [Demadex] 100 mg PO DAILY 05/29/19 05/29/19 Unknown Previous Rx's Medication Instructions Recorded Last Taken Type Carvedilol [Coreg] 25 mg PO BID #60 tablet 06/22/18 Unknown Rx oxyCODONE /ACETAMINOPHEN [Percocet 1 tab PO Q6HR PRN #15 tablet 05/29/19 Unknown Rx 5/325] Allergies Allergy/AdvReac Type Severity Reaction Status Date / Time No Known Allergies Allergy Verified 08/15/18 14:29 ED Review of Systems ROS: Stated complaint: LEFT FOOT PAIN Other details as noted in HPI Comment: All other systems reviewed and negative Constitutional: denies: fever, malaise Gastrointestinal: denies: abdominal pain, nausea, vomiting Skin: denies: rash, lesions ED Past Medical Hx - Past Medical History Previous Medical History?: Yes Hx Hypertension: Yes Hx CVA: Yes Hx Congestive Heart Failure: Yes Hx Diabetes: Yes Hx Deep Vein Thrombosis: Yes Hx Asthma: Yes Hx COPD: No Additional medical history: Sleep Apnea. Hyperthyroid. AFib - Surgical History Past Surgical History?: Yes Additional Surgical History: Hysterectomy, - Social History Smoking Status: Never Smoker Substance Use Type: None - Medications Home Medications: Home Medications Medication Instructions Recorded Confirmed Last Taken Type Carvedilol [Coreg] 25 mg PO BID #60 tablet 06/22/18 05/29/19 Unknown Rx ALBUTEROL Inhaler (OR & NICU) 2 puff IH QID PRN 05/29/19 05/29/19 Unknown History [Proair] Acetaminophen [Tylenol] 500 mg PO BID 05/29/19 05/29/19 Unknown History Apixaban [Eliquis] 5 mg PO Q12H 05/29/19 05/29/19 Unknown History AtorvaSTATin [Lipitor] 40 mg PO DAILY 05/29/19 05/29/19 Unknown History Baclofen [Lioresal] 5 mg PO TID 05/29/19 05/29/19 Unknown History Gabapentin [Neurontin] 900 mg PO TID 05/29/19 05/29/19 Unknown History Ibuprofen [Ibu-200] 200 mg PO TID 05/29/19 05/29/19 Unknown History Insulin Glargine [Lantus] 25 unit SUB-Q QHS 05/29/19 05/29/19 Unknown History Lisinopril [Zestril] 20 mg PO DAILY 05/29/19 05/29/19 Unknown History Mupirocin [Bactroban 2% CREAM] 1 applicatio TP TID 05/29/19 05/29/19 Unknown History Spironolactone [Aldactone] 25 mg PO DAILY 05/29/19 05/29/19 Unknown History Torsemide [Demadex] 100 mg PO DAILY 05/29/19 05/29/19 Unknown History oxyCODONE /ACETAMINOPHEN [Percocet 1 tab PO Q6HR PRN #15 tablet 05/29/19 Unknow n Rx 5/325] ED Physical Exam - General Limitations: No Limitations General appearance: alert, in no apparent distress - Head Head exam: Present: atraumatic, normocephalic - Eye Eye exam: Present: normal appearance - ENT ENT exam: Present: mucous membranes moist - Neck Neck exam: Present: normal inspection - Respiratory Respiratory exam: Present: normal lung sounds bilaterally. Absent: respiratory distress - Cardiovascular Cardiovascular Exam: Present: regular rate, normal rhythm. Absent: systolic murmur, diastolic murmur, rubs, gallop - GI/Abdominal GI/Abdominal exam: Present: soft, normal bowel sounds - Extremities Exam Extremities exam: Present: pedal edema, other (gregoria wrap both legs, after removal gregoria wrap left leg, intact skin without cellulitis 2+ DP pulse) - Neurological Exam Neurological exam: Present: alert, oriented X3 - Psychiatric Psychiatric exam: Present: normal affect, normal mood - Skin Skin exam: Present: warm, dry, intact, normal color. Absent: rash ED Course Vital Signs 05/29/19 05/29/19 05/29/19 14:06 19:07 19:13 Temperature 99.3 F Pulse Rate 86 65 Respiratory 20 18 18 Rate Blood Pressure 117/60 150/76 [Right] O2 Sat by Pulse 93 100 100 Oximetry 05/29/19 19:32 Temperature Pulse Rate Respiratory 16 Rate Blood Pressure [Right] O2 Sat by Pulse Oximetry ED Lower Extremity MDM - Lab Data Result diagrams: 05/29/19 14:05 05/29/19 14:05 Laboratory Results - last 24 hr 05/29/19 05/29/19 05/29/19 14:05 14:05 14:05 WBC 9.5 RBC 3.69 Hgb 10.6 Hct 32.2 MCV 87 MCH 29 MCHC 33 RDW 15.5 H Plt Count 211 Lymph % (Auto) 16.9 Patrick % (Auto) 6.0 Eos % (Auto) 2.5 Baso % (Auto) 1.1 Lymph # 1.6 Patrick # 0.6 Eos # 0.2 Baso # 0.1 Seg Neutrophils % 73.5 H Seg Neutrophils # 7.0 PT 15.4 H INR 1.25 H APTT 31.4 Sodium Potassium Chloride Carbon Dioxide Anion Gap BUN Creatinine Estimated GFR BUN/Creatinine Ratio Glucose Calcium Troponin T NT-Pro-B Natriuret Pep 92.87 05/29/19 05/29/19 14:05 16:30 WBC RBC Hgb Hct MCV MCH MCHC RDW Plt Count Lymph % (Auto) Patrick % (Auto) Eos % (Auto) Baso % (Auto) Lymph # Patrick # Eos # Baso # Seg Neutrophils % Seg Neutrophils # PT INR APTT Sodium 143 Potassium 3.7 Chloride 101.6 Carbon Dioxide 27 Anion Gap 18 BUN 17 Creatinine 1.1 Estimated GFR > 60 BUN/Creatinine Ratio 15 Glucose 320 H Calcium 9.2 Troponin T < 0.010 NT-Pro-B Natriuret Pep - EKG Data 05/29/19 20:16 EKG obtained 1401 Normal sinus rhythm rate 85 beats a minute normal axis normal intervals no ST elevation low voltage QRS - Radiology Data Radiology results: report reviewed Mild cardiomegaly without acute findings according to radiologist's report of chest radiograph - Medical Decision Making Mrs. Guadalupe presents with bilateral leg burning left greater than right. No indication of DVT or cellulitis. No indication of acute peripheral artery occlusion. I suspect worsening of neuropathic pain. I prescribed 15 tablets of Percocet. I strongly encouraged follow-up with her PCP. Low risk of propag ation of small DVT while on Eliquis therapy. DC'd home in stable condition. No indication of acute congestive heart failure. Critical care attestation.: If time is entered above; I have spent that time in minutes in the direct care of this critically ill patient, excluding procedure time. ED Disposition Clinical Impression: Peripheral neuropathy, Left leg pain, Congestive heart failure (CHF) Disposition: DC-01 TO HOME OR SELFCARE Is pt being admited?: No Does the pt Need Aspirin: No Condition: Stable Instructions: Peripheral Neuropathy (ED), Diabetic Neuropathy (ED) Prescriptions: oxyCODONE /ACETAMINOPHEN [Percocet 5/325] 1 tab PO Q6HR PRN #15 tablet PRN Reason: Pain Referrals: PRIMARY CARE,MD [Primary Care Provider] - 3-5 Days
[2019-05-30 02:29] VITALS: BP 156/73
== END 2019-05-29 21:22 | disposition home or self-care (01) ==
LOC: ED 13:44
DX: G62.9 Polyneuropathy, unspecified (principal); R06.02 Shortness of breath; I11.0 Hypertensive heart disease with heart failure; I50.9 Heart failure, unspecified; E11.9 Type 2 diabetes mellitus without complications; E05.90 Thyrotoxicosis, unspecified without thyrotoxic crisis or storm; Z86.718 Personal history of other venous thrombosis and embolism; Z86.73 Personal history of transient ischemic attack (TIA), and cerebral infarction without residual deficits; Z79.899 Other long term (current) drug therapy; Z98.51 Tubal ligation status; Z79.4 Long term (current) use of insulin
CPT/HCPCS: 36415; 71046; 80048; 83880; 84484; 85025; 85610; 85730; 93005; 93010